=== PATIENT | female | born 1965 | race Caucasian/White ===

== ENCOUNTER → 2017-06-04 | Outpatient (CLI) | payer BC ==
--- NOTE | 2017-06-05 10:55 | MM ---
Reason for exam: screening (asymptomatic). Last mammogram was performed 1 year and 5 months ago. History: Family history of premenopausal breast cancer in paternal aunt at age 45. Physical Findings: A clinical breast exam by your physician is recommended on an annual basis and results should be correlated with mammographic findings. MG 3D Screening Mammo W/Cad Bilateral CC and MLO view(s) were taken. Prior study comparison: December 28, 2015, left breast MG work up mamm w CAD LT. December 18, 2015, bilateral MG screening mammo w CAD. The breast tissue is heterogeneously dense. This may lower the sensitivity of mammography. No significant changes when compared with prior studies. ASSESSMENT: Benign, BI-RAD 2 RECOMMENDATION: Routine screening mammogram of both breasts in 1 year.
== END | disposition home or self-care (01) ==
LOC: RADMAMWWP 15:16
PROVIDERS: ATTEND Family Medicine
DX: Z12.31 Encounter for screening mammogram for malignant neoplasm of breast (principal)
CPT/HCPCS: 77063; 77067

== ENCOUNTER 2017-06-11 07:44 | Day surgery (SDC) | payer BC ==
[2017-06-10 08:41] VITALS: BMI 25.8
[~2017-06-11 07:44] MED LIST: LACTATED RINGERS 1,000 ML IV SCH; LIDOCAINE 1% 20 ML VIAL (10MG/ML) FOR IV START INTRADERMA PRN
[2017-06-11 08:09] VITALS: TEMP 98.5
[2017-06-11] MEDS ORDERED: PROPOFOL 10 MG/ML 20 ML VIAL IV ONE (09:19)
[2017-06-11] MEDS ORDERED: LIDOCAINE 1% INJ 10MG/ML (20 ML MDV) ONE (09:19)
[2017-06-11 10:02] VITALS: BP 130/86; PULSE 78; RESP 18
--- NOTE | 2017-06-11 10:33 | P.PCN ---
Date of Procedure: 06/11/17 Procedure(s) Performed: Procedure: Colonoscopy and polypectomy. Preoperative diagnosis: Screening for neoplasia. Postoperative diagnosis: Rectal polyp snared and fulgurated with the snare but no large polyps or cancer. Preparation: HalfLytely prep. Sedation: Was provided by anesthesia. Brief clinical history: The patient is a 52-year-old female who is referred for this evaluation for screening for neoplasia age being her risk factor. There is no family history of colon cancer. The patient has no abdominal complaints, bleeding or anemia. This would be her first colonoscopy. Procedure: With the patient on her left lateral decubitus position and after informed consent and adequate sedation, the perianal area was inspected and it did not show any fissures or fistulas. There were no masses felt on digital rectal examination. The Olympus CFQ 160L video colonoscope was then inserted in the rectum in the usual fashion and advanced to the cecum. There was a flat polypoid area in the rectum within 1 cm from the anal canal measuring around 2 cm in greatest dimension which was snared and removed piecemeal. I then used the tip of the snare to fulgurate its borders with good hemostasis. There were no large polyps or cancer or any obvious diverticular disease or other pathology. I retroflexed the endoscope in the rectum before the endoscope was withdrawn. The patient tolerated the procedure well. Plan: The patient was reassured. Will await pathology results. I anticipate repeating this exam in around 3 years. She will follow-up with you as planned.
== END 2017-06-11 10:16 | disposition home or self-care (01) ==
LOC: ORWHC2ENDO 07:44
DX: Z12.11 Encounter for screening for malignant neoplasm of colon (principal); D12.8 Benign neoplasm of rectum; Z88.0 Allergy status to penicillin; K21.9 Gastro-esophageal reflux disease without esophagitis; Z79.899 Other long term (current) drug therapy
CPT/HCPCS: 81025; 88305; 45385; J2001; J2704

== ENCOUNTER → 2019-02-14 | Outpatient (CLI) | payer BC ==
--- NOTE | 2019-02-14 17:45 | BD ---
EXAMINATION TYPE: Axial Bone Density DATE OF EXAM: 02/14/2019 COMPARISON: NONE CLINICAL HISTORY: 53-year-old female postmenopausal screening Height: 65 inches Weight: 156 FRAX RISK QUESTIONS: Alcohol (3 or more units per day): no Family History (Parent hip fracture): no Glucocorticoids (More than 3mos): no (Ex: prednisone, prednisolone, methylprednisolone, dexamethasone, and hydrocortisone). History of Fracture in Adulthood: no Secondary Osteoporosis: 1. Type 1 Diabetes: no 2. Hyperthyroidism: no 3. Menopause before 45: no 4. Malnutrition: no 5. Chronic liver disease: no Rheumatoid Arthritis: no Current Tobacco Use: no RISK FACTORS HISTORY OF: Family History of Osteoporosis: no Active: yes Diet low in dairy products/other sources of calcium: no Postmenopausal woman: yes Take estrogen and/or progesterone medications: no Lost more than 2 inches in height since high school: no Frequent falls: no Poor Health: no Hyperparathyroidism: no Adrenal Insufficiency: no MEDICATIONS: Prednisone or other steroids: no Thyroid Medications:no Osteoporosis Medications: no Additional Medications: just started cholesterol med , Vitamin D, multi-Vitamin Additional History: EXAM MEASUREMENTS: Bone mineral densitometry was performed using the [employer] System. Bone mineral density as measured about the Lumbar spine is: ----- L1-L4(G/cm2): 1.254 T Score Values are as follows: ----- L2: -0.3 ----- L3: 1.3 ----- L4: 1.5 ----- L1-L4: 0.6 Bone mineral density BASELINE Bone mineral density about the R hip (g/cm2): 0.995 Bone mineral density about the L hip (g/cm2): 0.964 T Score values are as follows: -----R Neck: -0.3 -----L Neck: -0.5 -----R Total: 0.5 -----L Total: 0.4 Bone mineral density BASELINE IMPRESSION: Normal (Values between +1 and -1 indicate normal bone mass). Consider repeating this study in 5 year s or sooner if there is some new clinical indication. NOTE: T-SCORE=SD OF THE YOUNG ADULT MEAN.
== END | disposition home or self-care (01) ==
LOC: RADBDWWP 13:22
PROVIDERS: ATTEND Family Medicine
DX: M85.80 Other specified disorders of bone density and structure, unspecified site (principal)
CPT/HCPCS: 77080

== ENCOUNTER 2019-02-22 17:44 | Observation (INO) | payer BC ==
--- NOTE | 2019-02-22 17:54 | ED ---
Arrhythmia/Palpitations HPI - General Chief Complaint: Arrhythmia/Palpitations Stated Complaint: palpatations Time Seen by Provider: 02/22/19 17:53 Source: patient, RN notes reviewed, old records reviewed Mode of arrival: ambulatory Limitations: no limitations - History of Present Illness Initial Comments: This is a 53-year-old female the ER for evaluation shortness a for evaluation palpitations skipping heartbeats. Patient has had different episodes of palpitations recently. Symptoms 4-5 days. No chest pain. History of high cholesterol nonsmoker. No significant history of heart disease. No drugs or alcohol abuse. MD Complaint: palpitations -: days(s) (5) Context: occurred during rest, occurred during exertion Associated Symptoms: denies other symptoms - Related Data Home Medications Medication Instructions Recorded Confirmed Esomeprazole Magnesium [NexIUM] 20 mg PO DAILY 06/10/17 02/22/19 Multivitamin/Iron/Folic Acid 1 tab PO DAILY 06/10/17 02/22/19 [Centrum Adults Tablet] Atorvastatin [Lipitor] 20 mg PO HS 02/22/19 02/22/19 Cholecalciferol [Vitamin D3 (25 1,000 unit PO DAILY 02/22/19 02/22/19 Mcg = 1000 Iu)] Allergies Allergy/AdvReac Type Severity Reaction Status Date / Time Penicillins Allergy Unknown Verified 02/22/19 18:31 Childhood Review of Systems ROS Statement: Those systems with pertinent positive or pertinent negative responses have been documented in the HPI. ROS Other: All systems not noted in ROS Statement are negative. Past Medical History Past Medical History: Hyperlipidemia History of Any Multi-Drug Resistant Organisms: None Reported Additional Past Surgical History / Comment(s): finger sx, cyst removal Past Psychological History: No Psychological Hx Reported Smoking Status: Never smoker Past Alcohol Use History: Occasional Past Drug Use History: None Reported General Exam Limitations: no limitations General appearance: alert, in no apparent distress Head exam: Present: atraumatic, normocephalic, normal inspection Eye exam: Present: normal appearance, PERRL, EOMI. Absent: scleral icterus, conjunctival injection, periorbital swelling ENT exam: Present: normal exam, mucous membranes moist Neck exam: Present: normal inspection. Absent: tenderness, meningismus, lymphadenopathy Respiratory exam: Present: normal lung sounds bilaterally. Absent: respiratory distress, wheezes, rales, rhonchi, stridor Cardiovascular Exam: Present: regular rate, normal rhythm, normal heart sounds. Absent: systolic murmur, diastolic murmur, rubs, gallop, clicks GI/Abdominal exam: Present: soft, normal bowel sounds. Absent: distended, tenderness, guarding, rebound, rigid Extremities exam: Present: normal inspection, full ROM, normal capillary refill. Absent: tenderness, pedal edema, joint swelling, calf tenderness Back exam: Present: normal inspection Neurological exam: Present: alert, oriented X3, CN II-XII intact Psychiatric exam: Present: normal affect, normal mood Skin exam: Present: warm, dry, intact, normal color. Absent: rash Course Vital Signs 02/22/19 02/22/19 02/22/19 17:46 18:10 20:05 Temperature 97.6 F 97.6 F Pulse Rate 82 86 Pulse Rate [ 80 [employer] ] Respiratory 18 18 Rate Blood Pressure 140/80 115/69 O2 Sat by Pulse 99 99 Oximetry - Reevaluation(s) Reevaluation #1: 02/22/19 17:54 Medical records reviewed Reevaluation #2: 02/22/19 21:04 This patient at length regarding staying versus regarding patient seeing cardiology on outpatient basis. Patient states the pain and palpitations are bothering her about, she is unable to be discharged home - Consultations Consultation #1: Spoke with Dr. Ho is okay for admission EKG Findings - EKG Comments: EKG Findings:: EKG shows sinus rhythm rate of 75, AL 170, QRS 80, QTC 469 Medical Decision Making - Medical Decision Making 53 female the ER presenting with palpitations. Patient having active PVCs occurring about every other beat with occasional chest pain. Patient be admitted for cardiac observation and monitoring of PVCs and heart rhythm. Patient also is having episodic chest tightness we'll trend cardiac enzymes - Lab Data Result diagrams: 02/22/19 18:20 02/22/19 18:20 Lab Results 02/22/19 02/22/19 02/22/19 Range/Units 18:20 18:20 18:20 WBC 6.4 (3.8-10.6) k/uL RBC 4.11 (3.80-5.40) m/uL Hgb 12.9 (11.4-16.0) gm/dL Hct 36.4 (34.0-46.0) % MCV 88.5 (80.0-100.0) fL MCH 31.3 (25.0-35.0) pg MCHC 35.4 (31.0-37.0) g/dL RDW 12.8 (11.5-15.5) % Plt Count 197 (150-450) k/uL Neutrophils % 76 % Lymphocytes % 15 % Monocytes % 6 % Eosinophils % 1 % Basophils % 0 % Neutrophils # 4.8 (1.3-7.7) k/uL Lymphocytes # 1.0 (1.0-4.8) k/uL Monocytes # 0.4 (0-1.0) k/uL Eosinophils # 0.0 (0-0.7) k/uL Basophils # 0.0 (0-0.2) k/uL PT 10.1 (9.0-12.0) sec INR 0.9 (<1.2) APTT 24.2 (22.0-30.0) sec Sodium 137 (137-145) mmol/L Potassium 4.2 (3.5-5.1) mmol/L Chloride 100 (98-107) mmol/L Carbon Dioxide 28 (22-30) mmol/L Anion Gap 9 mmol/L BUN 18 H (7-17) mg/dL Creatinine 0.82 (0.52-1.04) mg/dL Est GFR (CKD-EPI)AfAm >90 (>60 ml/min/1.73 sqM) Est GFR (CKD-EPI)NonAf 82 (>60 ml/min/1.73 sqM) Glucose 93 (74-99) mg/dL Plasma Lactic Acid Fred (0.7-2.0) mmol/L Calcium 10.0 (8.4-10.2) mg/dL Phosphorus 4.3 (2.5-4.5) mg/dL Magnesium 1.9 (1.6-2.3) mg/dL Total Bilirubin 2.5 H (0.2-1.3) mg/dL AST 34 (14-36) U/L ALT 33 (9-52) U/L Alkaline Phosphatase 64 (38-126) U/L Creatine Kinase 46 (30-135) U/L Troponin I (0.000-0.034) ng/mL Total Protein 7.7 (6.3-8.2) g/dL Albumin 4.8 (3.5-5.0) g/dL TSH 1.500 (0.465-4.680) mIU/L Urine Color Urine Appearance (Clear) Urine pH (5.0-8.0) Ur Specific Ambrose (1.001-1.035) Urine Protein (Negative) Urine Glucose (UA) (Negative) Urine Ketones (Negative) Urine Blood (Negative) Urine Nitrite (Negative) Urine Bilirubin (Negative) Urine Urobilinogen (<2.0) mg/dL Ur Leukocyte Esterase (Negative) 02/22/19 02/22/19 02/22/19 Range/Units 18:20 18:20 19:21 WBC (3.8-10.6) k/uL RBC (3.80-5.40) m/uL Hgb (11.4-16.0) gm/dL Hct (34.0-46.0) % MCV (80.0-100.0) fL MCH (25.0-35.0) pg MCHC (31.0-37.0) g/dL RDW (11.5-15.5) % Plt Count (150-450) k/uL Neutrophils % % Lymphocytes % % Monocytes % % Eosinophils % % Basophils % % Neutrophils # (1.3-7.7) k/uL Lymphocytes # (1.0-4.8) k/uL Monocytes # (0-1.0) k/uL Eosinophils # (0-0.7) k/uL Basophils # (0-0.2) k/uL PT (9.0-12.0) sec INR (<1.2) APTT (22.0-30.0) sec Sodium (137-145) mmol/L Potassium (3.5-5.1) mmol/L Chloride (98-107) mmol/L Carbon Dioxide (22-30) mmol/L Anion Gap mmol/L BUN (7-17) mg/dL Creatinine (0.52-1.04) mg/dL Est GFR (CKD-EPI)AfAm (>60 ml/min/1.73 sqM) Est GFR (CKD-EPI)NonAf (>60 ml/min/1.73 sqM) Glucose (74-99) mg/dL Plasma Lactic Acid Fred 0.7 (0.7-2.0) mmol/L Calcium (8.4-10.2) mg/dL Phosphorus (2.5-4.5) mg/dL Magnesium (1.6-2.3) mg/dL Total Bilirubin (0.2-1.3) mg/dL AST (14-36) U/L ALT (9-52) U/L Alkaline Phosphatase (38-126) U/L Creatine Kinase (30-135) U/L Troponin I <0.012 (0.000-0.034) ng/mL Total Protein (6.3-8.2) g/dL Albumin (3.5-5.0) g/dL TSH (0.465-4.680) mIU/L Urine Color Light Yellow Urine Appearance Clear (Clear) Urine pH 6.0 (5.0-8.0) Ur Specific Ambrose 1.003 (1.001-1.035) Urine Protein Negative (Negative) Urine Glucose (UA) Negative (Negative) Urine Ketones Negative (Negative) Urine Blood Negative (Negative) Urine Nitrite Negative (Negative) Urine Bilirubin Negative (Negative) Urine Urobilinogen <2.0 (<2.0) mg/dL Ur Leukocyte Esterase Negative (Negative) - Radiology Data Radiology results: report reviewed (Chest x-rays negative for acute disease), image reviewed Disposition Clinical Impression: Palpitations, Premature ventricular contraction, Atypical chest pain Disposition: ADMITTED IP TO THIS HOSP Condition: Good Is patient prescribed a controlled substance at d/c from ED?: No Referrals: Canelo Donald DO [Primary Care Provider] - 1-2 days
[2019-02-22 19:13] LABS: Basophils % (A) 0 %; Eosinophils % (A) 1 %; HCT 36.4 % (34.0-46.0); HGB 12.9 gm/dL (11.4-16.0); Lymphocytes % (A) 15 %; MCH 31.3 pg (25.0-35.0); MCHC 35.4 g/dL (31.0-37.0); MCV 88.5 fL (80.0-100.0); Mean Platelet Volume 6.3; Monocytes # (A) 0.4 k/uL (0-1.0); Monocytes % (A) 6 %; Neutrophils # (A) 4.8 k/uL (1.3-7.7); Neutrophils % (A) 76 %; Platelet Count 197 k/uL (150-450); RBC 4.11 m/uL (3.80-5.40); RDW 12.8 % (11.5-15.5); WBC 6.4 k/uL (3.8-10.6)
[2019-02-22 19:14] LABS: Appearance,Urine Clear (Clear); Bilirubin,Urine Negative (Negative); Blood,Urine Negative (Negative); Color,Urine Light Yellow; Glucose,Urine (UA) Negative (Negative); Ketones,Urine Negative (Negative); Leukocyte Esterase,Urine Negative (Negative); Nitrite,Urine Negative (Negative); Protein,Urine Negative (Negative); Specific Gravity,Urine 1.003 (1.001-1.035); Urobilinogen,Urine <2.0 mg/dL (<2.0)
[2019-02-22 19:22] LABS: ALT 33 U/L (9-52); AST 34 U/L (14-36); African American GFR (CKD) >90 (>60 ml/min/1.73 sqM); Albumin 4.8 g/dL (3.5-5.0); Alkaline Phosphatase 64 U/L (38-126); Anion Gap 9 mmol/L; Blood Urea Nitrogen 18 mg/dL (7-17); Carbon Dioxide 28 mmol/L (22-30); Chloride 100 mmol/L (98-107); Creatine Kinase 46 U/L (30-135); Glucose 93 mg/dL (74-99); Magnesium 1.9 mg/dL (1.6-2.3); Non-African American GFR(CKD) 82 (>60 ml/min/1.73 sqM); Phosphorus 4.3 mg/dL (2.5-4.5); Potassium 4.2 mmol/L (3.5-5.1); Sodium 137 mmol/L (137-145); Total Bilirubin 2.5 mg/dL (0.2-1.3); Total Protein 7.7 g/dL (6.3-8.2)
[2019-02-22 19:43] LABS: INR 0.9 (<1.2); Partial Thromboplastin Time 24.2 sec (22.0-30.0); Prothrombin Time 10.1 sec (9.0-12.0)
--- NOTE | 2019-02-22 20:21 | XR ---
EXAMINATION: XR chest 2V DATE AND TIME: 02/22/2019 7:12 PM CLINICAL INDICATION: PHH; Weakness, palpitations, dyspnea TECHNIQUE: Departmental protocol COMPARISON: None FINDINGS: The lungs are clear. The pleural spaces are negative. The cardiac silhouette is not enlarged. The remainder of the mediastinal silhouette is unremarkable. The skeletal structures and soft tissues are negative for acute findings. IMPRESSION: NO ACUTE PROCESS.
[2019-02-22] MEDS ORDERED: ASPIRIN 81 MG PO STA (21:00)
[2019-02-22] MEDS ORDERED: NITROGLYCERIN SL TABS 0.4 MG TAB SUBLINGUAL PRN (21:00)
[2019-02-22] MEDS ORDERED: METOPROLOL TARTRATE 25 MG TAB PO SCH (21:00)
[2019-02-22] MEDS ORDERED: SODIUM CHLORIDE 0.9% 1,000 ML IV SCH (21:00)
[2019-02-23 07:59] LABS: Cholesterol 131 mg/dL (<200); HDL Cholesterol 49 mg/dL (40-60); LDL Cholesterol,Calculated 60 mg/dL (0-99); Triglycerides 110 mg/dL (<150)
[2019-02-23] MEDS ORDERED: ASPIRIN 81 MG PO SCH (09:00)
[2019-02-23] MEDS ORDERED: ASPIRIN 325 MG TAB PO SCH (09:00)
--- NOTE | 2019-02-23 09:56 | P.CRDCN ---
History of Present Illness History of present illness: This is a pleasant 53-year-old female past medical history significant for dyslipidemia. She denies prior history of coronary artery disease, hypertension or diabetes mellitus. She does not follow with a workers compensation coordinator for any reason. Dyslipidemia is a new diagnosis that was made earlier this month and she was initiated on atorvastatin 20 mg daily by her primary care physician. We have been asked to see her in consultation secondary to palpitations. She states she has been feeling palpitations off and on since Thursday. She saw her pcp Thursday and was referred to a workers compensation coordinator. However yesterday she had another episode of palpitations that was much more intense than before. She felt her heart beating fast and regular causing a tightness in the mid-sternal region and band like tightening around her upper abdomen. Associated with feeling light headed and short of breath. She has had no syncope or near syncope. In the past she can lay down and breath deep and the episode would pass. This episode lasted around 35 minute with no real relief prompting her to come in for further evaluation. Initial EKG on arrival revealed sinus mechanism with PVCs and PACs. She was started on Lopressor 25 mg and has had no further palpitations or PVCs noted on telemetry. She is seen and examined resting comfortably in bed in no acute distress. Chest x-ray is negative for an acute cardiopulmonary process. Laboratory data reviewed, CBC unremarkable, sodium 137, potassium 4.2, creatinine 0.82, total bilirubin 2.5, cardiac enzymes negative 3, LDL 60 and TSH 1.5. At the time of my exam: CONSTITUTIONAL: Denies fever. Denies chills. EYES: Denies blurred vision. Denies vision changes. Denies eye pain. EARS, NOSE, MOUTH & THROAT: Denies headache. Denies sore throat. Denies ear pain. CARDIOVASCULAR: Denies chest pain. Denies shortness of breath. Denies orthopnea. Denies PND. Denies palpitations. RESPIRATORY: Denies cough. GASTROINTESTINAL: Denies abdominal pain. Denies diarrhea. Denies constipation. Denies nausea. Denies vomiting. MUSCULOSKELETAL: Denies myalgias. INTEGUMENTARY: Denies pruitis. Denies rash. NEUROLOGIC: Denies numbness. Denies tingling. Denies weakness. PSYCHIATRIC: Denies anxiety. Denies depression. ENDOCRINE: Denies fatigue. Denies weight change. Denies polydipsia. Denies polyurina. GENITOURINARY: Denies burning, hematuria or urgency with micturation. HEMATOLOGIC: Denies history of anemia. Denies bleeding. Blood pressure 100/71 heart rate 57 afebrile maintaining oxygen saturation on room air GENERAL: This is a 53-year-old female in no apparent distress at the time of my examination. HEENT: Head is atraumatic, normocephalic. Pupils are equal, round. Sclerae anicteric. Conjunctivae are clear. Mucous membranes of the mouth are moist. Neck is supple. There is no jugular venous distention. No carotid bruit is heard. LUNGS: Clear to auscultation no wheezes, rales or rhonchi. No chest wall tenderness is noted on palpation or with deep breathing. HEART: Regular rate and rhythm without murmurs, rubs or gallops. S1 and S2 hear d. ABDOMEN: Soft, nontender. Bowel sounds are heard. No organomegaly noted. EXTREMITIES: No evidence of peripheral edema and no calf tenderness noted. VASCULAR: Radial and dorsalis pedis pulses palpated, no evidence of clubbing. NEUROLOGIC: Patient is awake, alert and oriented x3. ASSESSMENT Palpitations and chest discomfort with PVCs noted on EKG History of dyslipidemia recently started on Lipitor PLAN EKG reveals PVCs which are likely causing the patient's palpitations. Obtain 2-D echocardiogram and Doppler study to assess cardiac structure and function. Recommend proceeding with stress echocardiogram to assess for stress-induced ischemia as well as assess the prevalence of ectopy. Recommend outpatient event monitoring. This will be set up through the office. She will wear a 30 day event monitor in follow-up in the office with Dr. Cavanaugh in 4 weeks. No beta blockers at this time. This may her event monitoring will be accurate as to what is going on. Recommend taking Lipitor twice a week as her LDL cholesterol after 2 weeks is 60. Thank you kindly for this consultation. Nurse Practitioner note has been reviewed, I agree with a documented findings and plan of care. Patient was seen and examined. Past Medical History Past Medical History: Hyperlipidemia History of Any Multi-Drug Resistant Organisms: None Reported Additional Past Surgical History / Comment(s): finger sx, cyst removal Past Anesthesia/Blood Transfusion Reactions: No Reported Reaction Past Psychological History: No Psychological Hx Reported Smoking Status: Never smoker Past Alcohol Use History: Occasional Past Drug Use History: None Reported Medications and Allergies Home Medications Medication Instructions Recorded Confirmed Type Esomeprazole Magnesium [NexIUM] 20 mg PO DAILY 06/10/17 02/22/19 History Multivitamin/Iron/Folic Acid 1 tab PO DAILY 06/10/17 02/22/19 History [Centrum Adults Tablet] Atorvastatin [Lipitor] 20 mg PO HS 02/22/19 02/22/19 History Cholecalciferol [Vitamin D3 (25 1,000 unit PO DAILY 02/22/19 02/22/19 History Mcg = 1000 Iu)] Allergies Allergy/AdvReac Type Severity Reaction Status Date / Time Penicillins Allergy Unknown Verified 02/22/19 18:31 Childhood Physical Exam Vitals: Vital Signs Temp Pulse Pulse Pulse Resp BP BP 02/23/19 07:14 97.6 F 62 17 109/71 02/23/19 03:45 98.0 F 57 L 14 121/81 02/23/19 03:43 55 L 15 02/22/19 23:15 98.0 F 77 15 117/79 02/22/19 21:38 97.7 F 78 16 140/82 02/22/19 21:15 97.6 F 86 16 132/89 02/22/19 20:05 97.6 F 86 18 115/69 02/22/19 18:10 80 02/22/19 17:46 97.6 F 82 18 140/80 Pulse Ox 02/23/19 07:14 99 02/23/19 03:45 98 02/23/19 03:43 02/22/19 23:15 98 02/22/19 21:38 98 02/22/19 21:15 99 02/22/19 20:05 99 02/22/19 18:10 02/22/19 17:46 99 Intake and Output 02/22/19 02/23/19 02/23/19 22:59 06:59 14:59 Other: # Voids 1 1 Weight 72.575 kg Results 02/22/19 18:20 02/22/19 18:20 Cardiac Enzymes 02/22/19 02/22/19 02/22/19 Range/Units 18:20 18:20 23:42 AST 34 (14-36) U/L Troponin I <0.012 <0.012 (0.000-0.034) ng/mL Coagulation 02/22/19 Range/Units 18:20 PT 10.1 (9.0-12.0) sec APTT 24.2 (22.0-30.0) sec Lipids 02/23/19 Range/Units 07:03 Triglycerides 110 (<150) mg/dL Cholesterol 131 (<200) mg/dL HDL Cholesterol 49 (40-60) mg/dL CBC 02/22/19 Range/Units 18:20 WBC 6.4 (3.8-10.6) k/uL RBC 4.11 (3.80-5.40) m/uL Hgb 12.9 (11.4-16.0) gm/dL Hct 36.4 (34.0-46.0) % Plt Count 197 (150-450) k/uL Comprehensive Metabolic Panel 02/22/19 Range/Units 18:20 Sodium 137 (137-145) mmol/L Potassium 4.2 (3.5-5.1) mmol/L Chloride 100 (98-107) mmol/L Carbon Dioxide 28 (22-30) mmol/L BUN 18 H (7-17) mg/dL Creatinine 0.82 (0.52-1.04) mg/dL Glucose 93 (74-99) mg/dL Calcium 10.0 (8.4-10.2) mg/dL AST 34 (14-36) U/L ALT 33 (9-52) U/L Alkaline Phosphatase 64 (38-126) U/L Total Protein 7.7 (6.3-8.2) g/dL Albumin 4.8 (3.5-5.0) g/dL Current Medications Generic Name Dose Route Start Last Admin Trade Name Freq PRN Reason Stop Dose Admin Aspirin 325 mg 02/23/19 09:00 Aspirin PO DAILY JULISSA Sodium Chloride 1,000 mls @ 100 mls/hr 02/22/19 21:00 02/22/19 21:13 Saline 0.9% IV 100 mls/hr .Q10H JULISSA Administration Metoprolol Tartrate 25 mg 02/22/19 21:00 02/22/19 21:45 Lopressor PO 25 mg BID JULISSA Administration Nitroglycerin 0.4 mg 02/22/19 21:00 Nitrostat SUBLINGUAL Q5M PRN Chest Pain Intake and Output 02/22/19 02/23/19 02/23/19 22:59 06:59 14:59 Other: # Voids 1 1 Weight 72.575 kg 02/22/19 18:20 02/22/19 18:20
[2019-02-23 11:39] VITALS: BP 116/67; PULSE 87; RESP 16; TEMP 97.7
[2019-02-23] MEDS ORDERED: METOPROLOL TARTRATE 25 MG TAB PO SCH (12:00)
--- NOTE | 2019-02-23 12:01 | ECHOF ---
Referral Reason:cp MEASUREMENTS -------- HEIGHT: 165.1 cm WEIGHT: 72.6 kg BP: RVIDd: 2.7 cm (< 3.3) IVSd: 1.1 cm (0.6 - 1.1) LVIDd: 3.8 cm (3.9 - 5.3) LVPWd: 1.0 cm (0.6 - 1.1) IVSs: 1.1 cm LVIDs: 3.1 cm LVPWs: 1.3 cm LA Diam: 2.9 cm (2.7 - 3.8) LAESV Index (A-L): 19.16 ml/m Ao Diam: 2.9 cm (2.0 - 3.7) AV Cusp: 1.6 cm (1.5 - 2.6) LA Diam: 3.0 cm (2.7 - 3.8) MV EXCURSION: 21.800 mm (> 18.000) MV EF SLOPE: 110 mm/s (70 - 150) EPSS: 0.6 cm MV E Jevon: 0.64 m/s MV DecT: 194 ms MV A Jevon: 0.61 m/s MV E/A Ratio: 1.04 RAP: 5.00 mmHg RVSP: 17.14 mmHg FINDINGS -------- Sinus rhythm. This was a technically good study. LV size, wall thickness and systolic function are normal, with an EF greater than 55%. The left waylon tricular size is normal. The right ventricle is normal in size. The left atrial size is normal. The right atrial size is normal. The aortic valve is trileaflet, and appears structurally normal. No aortic stenosis or regurgitation. Mild mitral regurgitation is present. Mild tricuspid regurgitation present. Right ventricular systolic pressure is normal at < 35 mmHg. There is no evidence of pulmonary hypertension. There is no pulmonic regurgitation present. The aortic root size is normal. There is no pericardial effusion. CONCLUSIONS -------- 1. Sinus rhythm. 2. This was a technically good study. 3. LV size, wall thickness and systolic function are normal, with an EF greater than 55%. 4. The left ventricular size is normal. 5. The right ventricle is normal in size. 6. The left atrial size is normal. 7. The right atrial size is normal. 8. The aortic valve is trileaflet, and appears structurally normal. No aortic stenosis or regurgitati on. 9. Mild mitral regurgitation is present. 10. Mild tricuspid regurgitation present. 11. Right ventricular systolic pressure is normal at < 35 mmHg. 12. There is no evidence of pulmonary hypertension. 13. There is no pulmonic regurgitation present. 14. The aortic root size is normal. 15. There is no pericardial effusion. WINDOWS SOFTWARE DEVELOPER: Amarilis Becerra RDCS
--- NOTE | 2019-02-23 13:57 | P.HPIM ---
History of Present Illness 53-year-old presents female came in with compensative palpation denied any chest pain although she has mild discomfort. Telemetry did not show any significant abnormality patient underwent stress test and the stress test patient had multiple PVCs which may be contributing to her palpitations patient denied any fever chills patient and dysuria patient denied diarrhea patient is not dehydrated doesn't have any signs or symptoms of sepsis. Cardiology valid to the patient they cleared her for discharge stress test was negative for any inducible ischemia and they're recommending Holter monitor as well as beta nadia. Patient will be discharged today. TSH is 1.5 Review of Systems REVIEW OF SYSTEMS: CONSTITUTIONAL: No fever, no malaise, no fatigue. HEENT: No recent visual problems or hearing problems. Denied any sore throat. CARDIOVASCULAR: No chest pain, orthopnea, PND, no syncope. PULMONARY: No shortness of breath, no cough, no hemoptysis. GASTROINTESTINAL: No diarrhea, no nausea, no vomiting, no abdominal pain. NEUROLOGICAL: No headaches, no weakness, no numbness. HEMATOLOGICAL: Denies any bleeding or petechiae. GENITOURINARY: Denies any burning micturition, frequency, or urgency. MUSCULOSKELETAL/RHEUMATOLOGICAL: Denies any joint pain, swelling, or any muscle pain. ENDOCRINE: Denies any polyuria or polydipsia. The rest of the 14-point review of systems is negative. Past Medical History Past Medical History: Hyperlipidemia History of Any Multi-Drug Resistant Organisms: None Reported Additional Past Surgical History / Comment(s): finger sx, cyst removal Past Anesthesia/Blood Transfusion Reactions: No Reported Reaction Past Psychological History: No Psychological Hx Reported Smoking Status: Never smoker Past Alcohol Use History: Occasional Past Drug Use History: None Reported Medications and Allergies Home Medications Medication Instructions Recorded Confirmed Type Esomeprazole Magnesium [NexIUM] 20 mg PO DAILY 06/10/17 02/22/19 History Multivitamin/Iron/Folic Acid 1 tab PO DAILY 06/10/17 02/22/19 History [Centrum Adults Tablet] Atorvastatin [Lipitor] 20 mg PO HS 02/22/19 02/22/19 History Cholecalciferol [Vitamin D3 (25 1,000 unit PO DAILY 02/22/19 02/22/19 History Mcg = 1000 Iu)] Metoprolol Tartrate [Lopressor] 25 mg PO DAILY #90 tab 02/23/19 Rx Allergies Allergy/AdvReac Type Severity Reaction Status Date / Time Penicillins Allergy Unknown Verified 02/22/19 18:31 Childhood Physical Exam Vitals: Vital Signs Temp Pulse Pulse Pulse Resp BP BP 02/23/19 11:49 87 16 02/23/19 11:38 97.7 F 87 16 116/67 02/23/19 08:00 57 L 62 17 02/23/19 07:14 97.6 F 62 17 109/71 02/23/19 03:45 98.0 F 57 L 14 121/81 02/23/19 03:43 55 L 15 02/22/19 23:15 98.0 F 77 15 117/79 02/22/19 21:38 97.7 F 78 16 140/82 02/22/19 21:15 97.6 F 86 16 132/89 02/22/19 20:05 97.6 F 86 18 115/69 02/22/19 18:10 80 02/22/19 17:46 97.6 F 82 18 140/80 Pulse Ox 02/23/19 11:49 02/23/19 11:38 99 02/23/19 08:00 02/23/19 07:14 99 02/23/19 03:45 98 02/23/19 03:43 02/22/19 23:15 98 02/22/19 21:38 98 02/22/19 21:15 99 02/22/19 20:05 99 02/22/19 18:10 02/22/19 17:46 99 Intake and Output 02/22/19 02/23/19 02/23/19 22:59 06:59 14:59 Other: Voiding Method Toilet # Voids 1 1 Weight 72.575 kg 72.575 kg PHYSICAL EXAMINATION: GENERAL: The patient is alert and oriented x3, not in any acute distress. Well developed, well nourished. HEENT: Pupils are round and equally reacting to light. EOMI. No scleral icterus. No conjunctival pallor. Normocephalic, atraumatic. No pharyngeal erythema. No thyromegaly. CARDIOVASCULAR: S1 and S2 present. No murmurs, rubs, or gallops. PULMONARY: Chest is clear to auscultation, no wheezing or crackles. ABDOMEN: Soft, nontender, nondistended, normoactive bowel sounds. No palpable organomegaly. MUSCULOSKELETAL: No joint swelling or deformity. EXTREMITIES: No cyanosis, clubbing, or pedal edema. NEUROLOGICAL: Gross neurological examination did not reveal any focal deficits. SKIN: No rashes. Results CBC & Chem 7: 02/22/19 18:20 02/22/19 18:20 Labs: Abnormal Lab Results - Last 24 Hours (Table) 02/22/19 Range/Units 18:20 BUN 18 H (7-17) mg/dL Total Bilirubin 2.5 H (0.2-1.3) mg/dL Thrombosis Risk Factor Assmnt - Choose All That Apply Each Factor Represents 1 point: Age 41-60 years Other Risk Factors: No Thrombosis Risk Factor Assessment Total Risk Factor Score: 1 Thrombosis Risk Factor Assessment Level: Low Risk Assessment and Plan Plan: Mild chest discomfort: Rule out acute chronic syndromes, stresses is negative patient is being discharged today -palpitations believed to be secondary to multiple PVCs and frequent PVCs patient is being discharged on beta nadia echocardiogram showed normal ejection fraction was also significant abnormality -Dyslipidemia: On Lipitor which will be continued
--- NOTE | 2019-02-23 13:57 | P.DS ---
Providers Date of admission: 02/22/19 21:02 Attending physician: Harinder Ho Consults: 02/22/19 21:00 Consult Physician Urgent Consulting Provider: Erik Partida Consult Reason/Comments: PVCs Do you want consulting provider notified?: Yes Primary care physician: Canelo Donald [facility] Course: Please refer to my HPI for further details Patient Condition at Discharge: Good Plan - Discharge Summary Discharge Rx Participant: No New Discharge Prescriptions: New Metoprolol Tartrate [Lopressor] 25 mg PO DAILY #90 tab Continue Esomeprazole Magnesium [NexIUM] 20 mg PO DAILY Multivitamin/Iron/Folic Acid [Centrum Adults Tablet] 1 tab PO DAILY Cholecalciferol [Vitamin D3 (25 Mcg = 1000 Iu)] 1,000 unit PO DAILY Atorvastatin [Lipitor] 20 mg PO HS Discharge Medication List Esomeprazole Magnesium [NexIUM] 20 mg PO DAILY 06/10/17 [History] Multivitamin/Iron/Folic Acid [Centrum Adults Tablet] 1 tab PO DAILY 06/10/17 [History] Atorvastatin [Lipitor] 20 mg PO HS 02/22/19 [History] Cholecalciferol [Vitamin D3 (25 Mcg = 1000 Iu)] 1,000 unit PO DAILY 02/22/19 [History] Metoprolol Tartrate [Lopressor] 25 mg PO DAILY #90 tab 02/23/19 [Rx] Follow up Appointment(s)/Referral(s): Lm Cavanaugh MD [STAFF PHYSICIAN] - 03/21/19 1:15 pm Canelo Donald DO [Primary Care Provider] - 3 Days Discharge Disposition: HOME SELF-CARE
--- NOTE | 2019-02-23 14:09 | ECHOS ---
STRESS ECHOCARDIOGRAM INDICATIONS: Palpitations. MEDICATIONS: Atorvastatin. BASELINE HEART RATE: 68 BASELINE BLOOD PRESSURE: 104/60 MAXIMUM HEART RATE: 151 MAXIMUM BLOOD PRESSURE: 158/70 85% MPHR: 142 100% MPHR: 167 METS: 10.3 MAXIMUM STAGE REACHED: 3 TOTAL EXERCISE TIME: 9:00 CLINICAL INFORMATION: Baseline EKG revealed a sinus mechanism with isolated PVCs, no acute changes. Patient walked on standard Stan protocol for 9 minutes, achieved a maximal heart rate of 151 beats per minute, developed fatigue and shortness of breath. Isolated PVCs persisted with exercise. At peak exercise, PVCs were less compared to at the beginning and again in the recovery, rare PVCs were noted. By EKG criteria, this is a negative stress test with asymptomatic isolated PVCs and fair exercise capacity. Baseline echo images revealed normal wall motion and wall thickening of all segments. At peak exercise, there was good augmentation of left ventricular wall motion and wall thickening of all segments suggesting that there is no evidence of stress-induced ischemia on this study. FINAL IMPRESSION: 1. Good exercise capacity with a negative stress test by EKG criteria. Asymptomatic isolated premature ventricular contractions were noted that seem to improve as exercise progressed and again came back in recovery. 2. Normal stress echocardiogram with good myocardial contractility and no evidence of stress-induced ischemia. MMODL / IJN: [id number] /
== END 2019-02-23 13:53 | disposition home or self-care (01) ==
LOC: EC 17:44 → 1SOBS 21:02
PROVIDERS: ADMIT Hospitalist; ATTEND Hospitalist
DX: R00.2 Palpitations (principal); R07.89 Other chest pain; I49.3 Ventricular premature depolarization; E78.5 Hyperlipidemia, unspecified; E78.00 Pure hypercholesterolemia, unspecified; R42 Dizziness and giddiness; R06.02 Shortness of breath; Z79.899 Other long term (current) drug therapy; Z88.0 Allergy status to penicillin
CPT/HCPCS: 93005 ×2; 99285; 36415; 93306; 93351; 80061; 80053; 82550; 83605; 83735; 84100; 84443; 84484 ×2; 85025; 85610; 85730; 81003; 71046; G0378 ×2

== ENCOUNTER → 2019-04-13 | Outpatient (CLI) | payer BC ==
--- NOTE | 2019-04-14 11:48 | MM ---
Reason for exam: screening (asymptomatic). Last mammogram was performed 1 year and 10 months ago. History: Patient is postmenopausal. Family history of premenopausal breast cancer in paternal aunt at age 45. Physical Findings: A clinical breast exam by your physician is recommended on an annual basis and results should be correlated with mammographic findings. MG Screening Mammo w CAD Bilateral CC and MLO view(s) were taken. Prior study comparison: June 04, 2017, bilateral MG 3d screening mammo w/cad. December 28, 2015, left breast MG work up mamm w CAD LT. The breast tissue is heterogeneously dense. This may lower the sensitivity of mammography. There is no discrete abnormality. ASSESSMENT: Negative, BI-RAD 1 RECOMMENDATION: Routine screening mammogram of both breasts in 1 year.
== END | disposition home or self-care (01) ==
LOC: RADMAMWWP 10:09
PROVIDERS: ATTEND Family Medicine
DX: Z12.31 Encounter for screening mammogram for malignant neoplasm of breast (principal)
CPT/HCPCS: 77067

== ENCOUNTER → 2020-06-21 | Outpatient (CLI) | payer BC ==
--- NOTE | 2020-06-22 13:43 | MM ---
Reason for exam: screening (asymptomatic). Last mammogram was performed 1 year and 2 months ago. History: Patient is postmenopausal. Family history of premenopausal breast cancer in paternal aunt at age 45. Physical Findings: A clinical breast exam by your physician is recommended on an annual basis and results should be correlated with mammographic findings. MG 3D Screening Mammo W/Cad Bilateral CC and MLO view(s) were taken. Prior study comparison: April 13, 2019, bilateral MG screening mammo w CAD. June 04, 2017, bilateral MG 3d screening mammo w/cad. The breast tissue is heterogeneously dense. This may lower the sensitivity of mammography. There is no discrete abnormality. No significant changes when compared with prior studies. ASSESSMENT: Benign, BI-RAD 2 RECOMMENDATION: Routine screening mammogram of both breasts in 1 year.
== END ==
LOC: RADMAMWWP 10:04
PROVIDERS: ATTEND Family Medicine
DX: Z12.31 Encounter for screening mammogram for malignant neoplasm of breast (principal)
CPT/HCPCS: 77063; 77067

== ENCOUNTER 2021-02-08 09:29 | Day surgery (SDC) | payer BC ==
[2021-02-06 13:23] VITALS: BMI 25.2
[~2021-02-08 09:29] MED LIST changes: -LIDOCAINE 1% 20 ML VIAL (10MG/ML) FOR IV START INTRADERMA PRN
[2021-02-08 09:48] VITALS: TEMP 97.8
[2021-02-08] MEDS ORDERED: LACTATED RINGERS 1,000 ML IV ONE (09:48)
[2021-02-08] MEDS ORDERED: LIDOCAINE 1% INJ 10MG/ML (20 ML MDV) ONE (10:46)
[2021-02-08] MEDS ORDERED: PROPOFOL 10 MG/ML 20 ML VIAL IV ONE (10:46)
--- NOTE | 2021-02-08 11:06 | P.PCN ---
Date of Procedure: 02/08/21 Procedure(s) Performed: BRIEF HISTORY: Patient is a 55-year-old pleasant white female scheduled for an elective colonoscopy as a part of the lesion of prior history of colon polyps. Last coloscopy was 3 years ago. PROCEDURE PERFORMED: Colonoscopy. PREOPERATIVE DIAGNOSIS: History of colon polyps. IV sedation per Anesthesia. PROCEDURE: After informed consent was obtained, the patient, was brought into the endoscopy unit. IV sedation was administered by Anesthesia under continuous monitoring. Digital rectal examination was normal. Initially the Olympus CF-160 flexible video colonoscope was then inserted in the rectum, gradually advanced into the cecum without any difficulty. Careful examination was performed as the scope was gradually being withdrawn. Ileocecal valve and the appendiceal orifice were visualized and appeared normal. Prep was excellent. Mucosa of the cecum, ascending colon, transverse colon, descending colon, sigmoid colon, and rectum appeared normal. Retroflexion was performed in the rectum and no lesions were seen. The patient tolerated the procedure well. IMPRESSION: Normal-appearing colon from rectum to cecum with no evidence of colorectal neoplasia . RECOMMENDATIONS: Findings of this examination were discussed with the patient as well as a family. She was advised to have a repeat surveillance colonoscopy in 5 years now because of the prior history of colon polyps.
[2021-02-08 11:09] VITALS: RESP 16
[2021-02-08 11:34] VITALS: BP 122/77; PULSE 66
== END 2021-02-08 11:55 | disposition home or self-care (01) ==
LOC: ORWHC2ENDO 09:29
PROVIDERS: ATTEND Internal Medicine Gastroenterology
DX: Z86.010 Personal history of colon polyps (principal)
CPT/HCPCS: 45378; J2001; J2704

== ENCOUNTER → 2021-04-02 | Outpatient (CLI) | payer BC ==
[2021-04-02 13:26] LABS: Basophils % (A) 1 %; Eosinophils # (A) 0.1 k/uL (0-0.7); Eosinophils % (A) 1 %; HCT 37.5 % (34.0-46.0); HGB 12.7 gm/dL (11.4-16.0); Lymphocytes # (A) 0.9 k/uL (1.0-4.8); Lymphocytes % (A) 15 %; MCH 30.9 pg (25.0-35.0); MCHC 33.9 g/dL (31.0-37.0); MCV 91.2 fL (80.0-100.0); Mean Platelet Volume 7.6; Monocytes # (A) 0.5 k/uL (0-1.0); Monocytes % (A) 8 %; Neutrophils # (A) 4.4 k/uL (1.3-7.7); Neutrophils % (A) 74 %; Platelet Count 186 k/uL (150-450); RBC 4.11 m/uL (3.80-5.40); WBC 5.9 k/uL (3.8-10.6)
== END | disposition home or self-care (01) ==
LOC: LABPAT 11:20
PROVIDERS: ATTEND Obstetrics & Gynecology
DX: Z01.818 Encounter for other preprocedural examination (principal); R00.1 Bradycardia, unspecified
CPT/HCPCS: 36415; 85025; 93005

== ENCOUNTER 2021-04-05 11:10 | Day surgery (SDC) | payer BC ==
[2021-04-03 10:50] VITALS: BMI 25.4
--- NOTE | 2021-04-05 09:08 | P.HPOB ---
History of Present Illness H&P Date: 04/05/21 Chief Complaint: DUB 55 year old presents with prolonged DUB. We have done endometrial biopsies which showed atrophic endometrium and cervical polyp. I have treated her for BV and yeast as well as cryotherapy of cervix. She continues to have a bloody vaginal discharge. Review of Systems All systems: negative Constitutional: Denies chills, Denies fever Eyes: denies blurred vision, denies pain Ears, nose, mouth and throat: Denies headache, Denies sore throat Cardiovascular: Denies chest pain, Denies shortness of breath Respiratory: Denies cough Gastrointestinal: Denies abdominal pain, Denies diarrhea, Denies nausea, Denies vomiting Genitourinary: Denies dysuria, Denies hematuria Musculoskeletal: Denies myalgias Integumentary: Denies pruritus, Denies rash Neurological: Denies numbness, Denies weakness Psychiatric: Denies anxiety, Denies depression Endocrine: Denies fatigue, Denies weight change Past Medical History Past Medical History: GERD/Reflux, Hyperlipidemia Additional Past Medical History / Comment(s): hx migraines, palpitations, abnormal post menopauseal vaginal bleeding History of Any Multi-Drug Resistant Organisms: None Reported Past Surgical History: Orthopedic Surgery Additional Past Surgical History / Comment(s): finger sx, cyst removal from ovary Past Anesthesia/Blood Transfusion Reactions: No Reported Reaction, Motion Sickness Smoking Status: Never smoker - Past Family History Mother Family Medical History: Cancer Medications and Allergies Home Medications Medication Instructions Recorded Confirmed Type Multivitamin/Iron/Folic Acid 1 tab PO DAILY 06/10/17 04/03/21 History [Centrum Adults Tablet] Atorvastatin [Lipitor] 20 mg PO MOTH 02/22/19 04/03/21 History Cholecalciferol [Vitamin D3 (25 1,000 unit PO DAILY 02/22/19 04/03/21 History Mcg = 1000 Iu)] Metoprolol Tartrate [Lopressor] 12.5 mg PO BID 02/06/21 04/03/21 History Magnesium Tab 110 mg PO DAILY 04/03/21 04/03/21 History Allergies Allergy/AdvReac Type Severity Reaction Status Date / Time Penicillins Allergy Unknown Verified 04/03/21 10:41 Childhood Exam Osteopathic Statement: *. No significant issues noted on an osteopathic struc tural exam other than those noted in the History and Physical/Consult. Heart: Regular rate and rhythm Lungs: Clear to auscultation bilaterally Abdomen: Soft, nontender Extremities: Negative Homans sign Assessment and Plan (1) DUB (dysfunctional uterine bleeding) Status: Acute Code(s): N93.8 - OTHER SPECIFIED ABNORMAL UTERINE AND VAGINAL BLEEDING SNOMED Code(s): 82606118013537 Plan: 1. D&C hysteroscopy and endometrial ablation with Flavia
[~2021-04-05 11:10] MED LIST changes: +DEXAMETHASONE SOD PHOSPHATE 4 MG/ML 1 ML VIAL IV ONE; +HYDROmorphone 0.5 MG/0.5 ML SYRINGE IVP PRN; +MIDAZOLAM 2 MG/2 ML VIAL IV PRN; +ONDANSETRON 4 MG/2 ML VIAL IVP ONE; +Pre Op ABX Message 1 EACH MISC MISCELLANE ONE; +SCOPOLAMINE 1.5MG/72HR PATCH TRANSDERM ONE
[2021-04-05] MEDS ORDERED: LIDOCAINE 1% (10MG/ML) FOR IV START INTRADERMA ONE (11:45)
[2021-04-05] MEDS ORDERED: .fentaNYL (PF) 50 MCG/ML 2 ML AMP ONE (12:20)
[2021-04-05] MEDS ORDERED: MIDAZOLAM 2 MG/2 ML VIAL ONE (12:20)
[2021-04-05] MEDS ORDERED: KETOROLAC 15 MG/ML 1 ML VIAL ONE (12:20)
[2021-04-05] MEDS ORDERED: PROPOFOL 10 MG/ML 20 ML VIAL IV ONE (12:20)
[2021-04-05] MEDS ORDERED: SUCCINYLCHOLINE CHLORIDE 100 MG/5 ML SYR IV ONE (12:20)
[2021-04-05] MEDS ORDERED: LIDOCAINE 1% INJ 10MG/ML (20 ML MDV) ONE (12:20)
--- NOTE | 2021-04-05 12:57 | P.OP ---
Date of Procedure: 04/05/21 Preoperative Diagnosis: 1. DUB Postoperative Diagnosis: 1. DUB Procedure(s) Performed: D&C hysteroscopy and endometrial ablation with Flavia Anesthesia: SUDHIR Surgeon: Ashleigh Stokes Estimated Blood Loss (ml): 50 IV fluids (ml): 200 Urine output (ml): 35 Pathology: other (endometrial currettings) Condition: stable Disposition: PACU Operative Findings: Uterus sounded to 6 cm and cervix sounded to 2 cm making the cavity length 4 cm. adequate ablation after the Flavia Description of Procedure: Patient is taken the operating room where general anesthesia was obtained without difficulty. She was prepped and draped in normal sterile fashion dorsal lithotomy position, legs placed in the TUTORizey cane stirrups. Bladder was drained of all urine. Weighted speculum placed in the vagina and the anterior lip the cervix was grasped with serial tooth tenaculum. The uterus sounded to 6 cm and the cervix under 2 cm making the cavity length 4 cm. The cervix was dilated to #8 Hegar dilator. Hysteroscopy was then performed. Both ostia were visualized and there was a smooth contour of the uterus appearing atrophic. There was one area on the posterior wall that looked like it had some proliferative tissue. Sharp curet was then gently used to obtain endometrial curettings. The Flavia was introduced into the uterus with a cavity length of 4 cm. After cavity assessment was passed, the time of ablation was 120 seconds. Hysteroscopy was again performed and adequate ablation was noted. All instruments removed from the vagina. Patient tolerated the procedure well, sponge and instrument counts were correct 2 and she was taken to recovery in stable condition.
[2021-04-05 13:00] VITALS: TEMP 97
[2021-04-05 14:12] VITALS: RESP 15
[2021-04-05 14:27] VITALS: BP 126/78; PULSE 84
== END 2021-04-05 14:56 | disposition home or self-care (01) ==
LOC: OR 11:10
PROVIDERS: ATTEND Obstetrics & Gynecology
DX: N85.8 Other specified noninflammatory disorders of uterus (principal); N84.1 Polyp of cervix uteri; I10 Essential (primary) hypertension; K21.9 Gastro-esophageal reflux disease without esophagitis; E78.5 Hyperlipidemia, unspecified; R00.2 Palpitations; G43.909 Migraine, unspecified, not intractable, without status migrainosus; Z98.890 Other specified postprocedural states; Z79.899 Other long term (current) drug therapy; Z88.0 Allergy status to penicillin
CPT/HCPCS: 88305; 58563; J2250; J1100; J2405; J2001; J3010; J1885; J0330; J2704

== ENCOUNTER → 2021-07-03 | Outpatient (CLI) | payer BC ==
--- NOTE | 2021-07-03 10:33 | US ---
EXAMINATION TYPE: US abdomen complete DATE OF EXAM: 07/03/2021 COMPARISON: NONE CLINICAL HISTORY: RUQ Abd tenderness R10.811 Epigastric pain R10.13. RUQ pain for the past 6 months. EXAM MEASUREMENTS: Liver Length: 14.5 cm Gallbladder Wall: Not clearly seen cm CBD: 0.6 cm Spleen: 9.9 x 4.7 cm Right Kidney: 9.7 x 4.8 x 4.4 cm Left Kidney: 10.0 x 4.6 x 3.7 cm Pancreas: wnl Liver: wnl Gallbladder: Shadowing gallbladder. Evidence for sonographic Gaines's sign: No CBD: wnl Spleen: wnl Right Kidney: No hydronephrosis or masses seen Left Kidney: No hydronephrosis or masses seen Upper IVC: wnl Abd Aorta: wnl Shadowing gallbladder. The liver is homogenous. The intrahepatic portion of the IVC and proximal abdominal aorta are within normal limits. Common bile duct is unremarkable. The visualized portions of the pancreas are homog enous. The spleen is unremarkable. Kidneys are symmetric and free of hydronephrosis. No renal lesi ons are seen. IMPRESSION: There is evidence of cholelithiasis.
== END | disposition home or self-care (01) ==
LOC: RADUSWWP 08:08
PROVIDERS: ATTEND Family Medicine
DX: K80.20 Calculus of gallbladder without cholecystitis without obstruction (principal)
CPT/HCPCS: 76700

== ENCOUNTER 2021-07-12 08:58 | Day surgery (SDC) | payer BC ==
[2021-07-10 13:13] VITALS: BMI 25.0
[~2021-07-12 08:58] MED LIST changes: -DEXAMETHASONE SOD PHOSPHATE 4 MG/ML 1 ML VIAL IV ONE; -HYDROmorphone 0.5 MG/0.5 ML SYRINGE IVP PRN; -MIDAZOLAM 2 MG/2 ML VIAL IV PRN; -ONDANSETRON 4 MG/2 ML VIAL IVP ONE; -Pre Op ABX Message 1 EACH MISC MISCELLANE ONE; -SCOPOLAMINE 1.5MG/72HR PATCH TRANSDERM ONE
[2021-07-12 09:28] VITALS: RESP 16; TEMP 97.3
[2021-07-12] MEDS ORDERED: LIDOCAINE 1% INJ 10MG/ML (20 ML MDV) ONE (10:20)
[2021-07-12] MEDS ORDERED: PROPOFOL 10 MG/ML 20 ML VIAL IV ONE (10:20)
--- NOTE | 2021-07-12 10:27 | P.PCN ---
Date of Procedure: 07/12/21 Procedure(s) Performed: BRIEF HISTORY: Patient is a 56-year-old, pleasant, white female scheduled for an upper endoscopy as a part of evaluation of gastroesophageal reflux symptoms for the last several months duration.. PROCEDURE PERFORMED: Esophagogastroduodenoscopy with biopsy. PREOPERATIVE DIAGNOSIS: Long-standing History of GERD. IV sedation per anesthesia. PROCEDURE: After informed consent was obtained, the patient was brought into the endoscopy unit. IV sedation was administered by Anesthesia under continuous monitoring. Initially the Olympus GIF-140 video endoscope was inserted into the mouth. Esophagus intubated without any difficulty. It was gradually advanced into the stomach and duodenum and carefully examined. The bulb and the second part of the duodenum appeared normal. The scope at this time was withdrawn to the stomach, adequately insufflated with air, and upon careful examination, mucosa of the antrum, minimal gastritis and biopsies were done from this area. The body, cardia and the fundus appeared normal. Small gastric polyps noted in the body and fundus of the stomach which were biopsied. The scope was then withdrawn into the esophagus. The GE junction was located at 39 cm from the incisors. The esophagus appeared normal. There were no erosions or ulcerations seen and the patient tolerated the procedure well. IMPRESSION: 1. Minimal antral gastritis. 2. Multiple small gastric polyps. RECOMMENDATIONS: The findings of this examination were discussed with the patient as a family. She was advised to follow with the biopsy results. Continue with Pepcid 20 mg daily and follow antireflux measures.
[2021-07-12 10:48] VITALS: BP 111/75; PULSE 64
== END 2021-07-12 11:00 | disposition home or self-care (01) ==
LOC: ORWHC2ENDO 08:58
PROVIDERS: ATTEND Internal Medicine Gastroenterology
DX: K29.70 Gastritis, unspecified, without bleeding (principal); K31.7 Polyp of stomach and duodenum; K21.9 Gastro-esophageal reflux disease without esophagitis; I10 Essential (primary) hypertension; E78.5 Hyperlipidemia, unspecified
CPT/HCPCS: 43239; 88305; J2001; J2704

== ENCOUNTER → 2021-07-29 | Outpatient (CLI) | payer BC ==
--- NOTE | 2021-07-30 10:57 | MM ---
Reason for exam: screening (asymptomatic). Last mammogram was performed 1 year and 1 month ago. History: Patient is postmenopausal. Family history of premenopausal breast cancer in paternal aunt at age 45. Physical Findings: A clinical breast exam by your physician is recommended on an annual basis and results should be correlated with mammographic findings. MG 3D Screening Mammo W/Cad Bilateral CC and MLO view(s) were taken. Prior study comparison: June 21, 2020, bilateral MG 3d screening mammo w/cad. April 13, 2019, bilateral MG screening mammo w CAD. There are scattered fibroglandular densities. No significant changes when compared with prior studies. ASSESSMENT: Benign, BI-RAD 2 RECOMMENDATION: Routine screening mammogram of both breasts in 1 year.
== END | disposition home or self-care (01) ==
LOC: RADMAMWWP 14:51
PROVIDERS: ATTEND Family Medicine
DX: Z12.31 Encounter for screening mammogram for malignant neoplasm of breast (principal); Z78.0 Asymptomatic menopausal state; Z80.3 Family history of malignant neoplasm of breast
CPT/HCPCS: 77063; 77067

== ENCOUNTER → 2021-10-24 | Outpatient (CLI) | payer BC ==
--- NOTE | 2021-10-24 11:58 | XR ---
EXAMINATION TYPE: XR abdomen 2V DATE OF EXAM: 10/24/2021 COMPARISON: Ultrasound dated 07/03/2021 INDICATION: Lower abdominal pain TECHNIQUE: AP views of the abdomen. FINDINGS: No obvious free air under the diaphragm. No multiple air-fluid levels or signs of acute high-grade sm all bowel obstruction. Fecal loading of the right hemicolon. Multiple gallbladder calculi, appreciated in the previous ultrasound. Suspected few tiny left pelvic phleboliths. IMPRESSION: As above.
== END | disposition home or self-care (01) ==
LOC: RADXRYALE 10:26
PROVIDERS: ATTEND Physician Assistant Medical
DX: K80.20 Calculus of gallbladder without cholecystitis without obstruction (principal)
CPT/HCPCS: 74019

== ENCOUNTER 2021-10-25 10:56 | Emergency (ER) | payer BC ==
[2021-10-25 13:02] VITALS: TEMP 97.9
[2021-10-25] MEDS ORDERED: HYDROmorphone 0.5 MG/0.5 ML SYRINGE IVP STA (15:11)
[2021-10-25] MEDS ORDERED: SODIUM CHLORIDE 0.9% 1,000 ML IV STA (15:11)
[2021-10-25 15:37] LABS: Appearance,Urine Clear (Clear); Bilirubin,Urine Negative (Negative); Blood,Urine Negative (Negative); Color,Urine Yellow; Glucose,Urine (UA) Negative (Negative); Ketones,Urine 1+ (Negative); Leukocyte Esterase,Urine Negative (Negative); Nitrite,Urine Negative (Negative); Protein,Urine Trace (Negative); Specific Gravity,Urine 1.015 (1.001-1.035); Urobilinogen,Urine <2.0 mg/dL (<2.0)
--- NOTE | 2021-10-25 15:58 | US ---
EXAMINATION TYPE: US abdomen limited DATE OF EXAM: 10/25/2021 COMPARISON: 07/03/2021 CLINICAL HISTORY: 56-year-old female scheduled erica next fri, increased RUQ pain. RUQ pain. Hx gall stones. EXAM MEASUREMENTS: Liver Length: 14.9 cm Gallbladder Wall: 0.2 cm CBD: 0.5 cm Right Kidney: 8.8 x 4.7 x 3.8 cm Pancreas: Suboptimal visualization of the pancreatic head and tail due to shadowing from bowel gas. Visualized body shows no gross abnormal body. Liver: Limited detail visualization due to body habitus and rib shadowing. Visualized portions show no gross abnormality. There is some ascites fluid within the hepatorenal recess. Gallbladder: Numerous shadowing gallstones measuring up to 1.5 cm. No harriet hydropic change of the g allbladder. No significant wall thickening. Evidence for sonographic Gaines's sign: neg CBD: wnl Right Kidney: No hydronephrosis or masses seen IMPRESSION: 1. Cholelithiasis but without ancillary imaging findings of acute cholecystitis at this time. 2. However, there is new, abnormal ascites fluid within the hepatorenal recess. Correlate as to poten tial etiology.
[2021-10-25 16:09] LABS: Basophils % (A) 0 %; Eosinophils % (A) 0 %; HGB 12.6 gm/dL (11.4-16.0); Lymphocytes # (A) 0.3 k/uL (1.0-4.8); Lymphocytes % (A) 2 %; MCH 29.9 pg (25.0-35.0); MCHC 34.1 g/dL (31.0-37.0); MCV 87.6 fL (80.0-100.0); Mean Platelet Volume 7.2; Monocytes # (A) 0.4 k/uL (0-1.0); Monocytes % (A) 3 %; Neutrophils # (A) 12.7 k/uL (1.3-7.7); Neutrophils % (A) 94 %; Platelet Count 206 k/uL (150-450); RBC 4.22 m/uL (3.80-5.40); RDW 13.7 % (11.5-15.5); WBC 13.5 k/uL (3.8-10.6)
[2021-10-25 16:15] VITALS: BP 115/69; PULSE 76; RESP 16
[2021-10-25 16:15] LABS: Albumin 4.8 g/dL (3.5-5.0); Calcium 9.7 mg/dL (8.4-10.2); Potassium 4.4 mmol/L (3.5-5.1); Total Protein 7.8 g/dL (6.3-8.2)
[2021-10-25 16:21] LABS: INR 0.9 (<1.2)
--- NOTE | 2021-10-25 16:34 | ED ---
Abdominal Pain HPI - General Chief Complaint: Abdominal Pain Stated Complaint: abd pain Time Seen by Provider: 10/25/21 14:58 Source: patient Mode of arrival: ambulatory Limitations: no limitations - History of Present Illness Initial Comments: Patient is a 56-year-old female with a past medical history of cholelithiasis who presents to the emergency department with worsening right upper quadrant pain. Patient has surgery scheduled with Dr. Oneal for gallbladder removal on November 01. Patient states she has been experiencing intermittent right upper qu adrant abdominal pain however since yesterday it has been constant. In the triage note it is noted patient has lower abdominal pain however patient describes the pain in the right upper quadrant with some radiation to the epigastric region. She does not report lower abdominal pain. She has not taken any medication for pain. She denies fever, chills, shortness of breath, chest pain, nausea, vomiting, back pain, burning with urination, and blood in the urine. States she drinks alcohol very occasionally with no recent alcohol use. - Related Data Home Medications Medication Instructions Recorded Confirmed Multivitamin/Iron/Folic Acid 1 tab PO DAILY 06/10/17 07/10/21 [Centrum Adults Tablet] Atorvastatin [Lipitor] 20 mg PO MOTH 02/22/19 07/12/21 Cholecalciferol [Vitamin D3 (25 1,000 unit PO DAILY 02/22/19 07/10/21 Mcg = 1000 Iu)] Metoprolol Tartrate [Lopressor] 12.5 mg PO BID 02/06/21 07/12/21 Magnesium Tab 110 mg PO DAILY 04/03/21 07/10/21 Previous Rx's Medication Instructions Recorded Dicyclomine [Bentyl] 10 mg PO TID PRN 7 Days #21 capsule 10/25/21 Ondansetron Odt [Zofran Odt] 4 mg PO Q8HR PRN 7 Days #21 tab 10/25/21 Allergies Allergy/AdvReac Type Severity Reaction Status Date / Time Penicillins Allergy Unknown Verified 10/25/21 13:02 Childhood Review of Systems ROS Statement: Those systems with pertinent positive or pertinent negative responses have been documented in the HPI. ROS Other: All systems not noted in ROS Statement are negative. Past Medical History Past Medical History: GERD/Reflux, Hyperlipidemia Additional Past Medical History / Comment(s): hx migraines, palpitations, abnormal post menopauseal vaginal bleeding History of Any Multi-Drug Resistant Organisms: None Reported Past Surgical History: Orthopedic Surgery Additional Past Surgical History / Comment(s): finger sx, cyst removal from ovary Past Anesthesia/Blood Transfusion Reactions: No Reported Reaction, Motion Sickness Past Psychological History: No Psychological Hx Reported Smoking Status: Never smoker Past Alcohol Use History: None Reported Past Drug Use History: None Reported - Past Family History Mother Family Medical History: Cancer General Exam Limitations: no limitations General appearance: alert, in no apparent distress Head exam: Present: atraumatic, normocephalic, normal inspection Eye exam: Absent: scleral icterus Respiratory exam: Present: normal lung sounds bilaterally. Absent: respiratory distress, wheezes, rales, rhonchi, stridor Cardiovascular Exam: Present: regular rate, normal rhythm, normal heart sounds. Absent: systolic murmur, diastolic murmur, rubs, gallop, clicks GI/Abdominal exam: Present: soft, tenderness (RUQ/epigastric, moderate ), normal bowel sounds. Absent: distended, guarding, rebound, rigid Neurological exam: Present: alert, oriented X3, CN II-XII intact Psychiatric exam: Present: normal affect, normal mood Skin exam: Present: warm, dry, intact, normal color. Absent: rash Course Vital Signs 10/25/21 10/25/21 12:59 16:14 Temperature 97.9 F Pulse Rate 85 76 Respiratory 18 16 Rate Blood Pressure 126/77 115/69 O2 Sat by Pulse 99 98 Oximetry Medical Decision Making - Medical Decision Making This is a 56-year-old female with a past medical history of cholelithiasis presenting with worsening right upper quadrant abdominal pain. Thorough history and examination were performed. Patient is well-appearing and in no apparent distress. Patient is concerned that the pain has moved to the epigastric region. She denies recent alcohol use. The abdomen is soft. There is moderate tenderness in the right upper quadrant and epigastric region. Positive Gaines sign. At this time there is concern for acute cholecystitis. I will obtain laboratory studies as well as ultrasound of the gallbladder. Laboratory studies significant for mild elevation of white blood cell count at 13.5 as well as elevated total bilirubin at 2.0. Patient does not appear jaundiced. There is no scleral icterus. Lipase is within normal limits. Ultra sound shows cholelithiasis without findings of acute cholecystitis at this time. There is no gallbladder wall thickening or pericholecystic fluid however there is abnormal ascites fluid within the hepatorenal recess. Results discussed with patient. I did recommend patient stays for observation h owever patient declined. Patient will be discharged with strict return parameters. I'll send her home with Erika. Patient to follow up with Dr. Oneal in 1-2 days. She verbalizes understanding and is agreeable to this plan. Upon discharge patient did have episode of vomiting. She was given Zofran. I will send her home with Zofran as well. Dr. Dominguez is my attending. - Lab Data Result diagrams: 10/25/21 15:14 10/25/21 15:14 Lab Results 10/25/21 10/25/21 10/25/21 Range/Units 15:14 15:14 15:14 WBC 13.5 H (3.8-10.6) k/uL RBC 4.22 (3.80-5.40) m/uL Hgb 12.6 (11.4-16.0) gm/dL Hct 37.0 (34.0-46.0) % MCV 87.6 (80.0-100.0) fL MCH 29.9 (25.0-35.0) pg MCHC 34.1 (31.0-37.0) g/dL RDW 13.7 (11.5-15.5) % Plt Count 206 (150-450) k/uL MPV 7.2 Neutrophils % 94 % Lymphocytes % 2 % Monocytes % 3 % Eosinophils % 0 % Basophils % 0 % Neutrophils # 12.7 H (1.3-7.7) k/uL Lymphocytes # 0.3 L (1.0-4.8) k/uL Monocytes # 0.4 (0-1.0) k/uL Eosinophils # 0.0 (0-0.7) k/uL Basophils # 0.0 (0-0.2) k/uL PT 10.0 (9.0-12.0) sec INR 0.9 (<1.2) APTT 23.0 (22.0-30.0) sec Sodium (137-145) mmol/L Potassium (3.5-5.1) mmol/L Chloride (98-107) mmol/L Carbon Dioxide (22-30) mmol/L Anion Gap mmol/L BUN (7-17) mg/dL Creatinine (0.52-1.04) mg/dL Est GFR (CKD-EPI)AfAm (>60 ml/min/1.73 sqM) Est GFR (CKD-EPI)NonAf (>60 ml/min/1.73 sqM) Glucose (74-99) mg/dL Plasma Lactic Acid Fred (0.7-2.0) mmol/L Calcium (8.4-10.2) mg/dL Total Bilirubin (0.2-1.3) mg/dL AST (14-36) U/L ALT (4-34) U/L Alkaline Phosphatase (38-126) U/L Total Protein (6.3-8.2) g/dL Albumin (3.5-5.0) g/dL Lipase (23-300) U/L Urine Color Yellow Urine Appearance Clear (Clear) Urine pH 5.0 (5.0-8.0) Ur Specific [place] 1.015 (1.001-1.035) Urine Protein Trace H (Negative) Urine Glucose (UA) Negative (Negative) Urine Ketones 1+ H (Negative) Urine Blood Negative (Negative) Urine Nitrite Negative (Negative) Urine Bilirubin Negative (Negative) Urine Urobilinogen <2.0 (<2.0) mg/dL Ur Leukocyte Esterase Negative (Negative) 10/25/21 10/25/21 Range/Units 15:14 15:14 WBC (3.8-10.6) k/uL RBC (3.80-5.40) m/uL Hgb (11.4-16.0) gm/dL Hct (34.0-46.0) % MCV (80.0-100.0) fL MCH (25.0-35.0) pg MCHC (31.0-37.0) g/dL RDW (11.5-15.5) % Plt Count (150-450) k/uL MPV Neutrophils % % Lymphocytes % % Monocytes % % Eosinophils % % Basophils % % Neutrophils # (1.3-7.7) k/uL Lymphocytes # (1.0-4.8) k/uL Monocytes # (0-1.0) k/uL Eosinophils # (0-0.7) k/uL Basophils # (0-0.2) k/uL PT (9.0-12.0) sec INR (<1.2) APTT (22.0-30.0) sec Sodium 134 L (137-145) mmol/L Potassium 4.4 (3.5-5.1) mmol/L Chloride 98 (98-107) mmol/L Carbon Dioxide 28 (22-30) mmol/L Anion Gap 8 mmol/L BUN 13 (7-17) mg/dL Creatinine 0.85 (0.52-1.04) mg/dL Est GFR (CKD-EPI)AfAm 89 (>60 ml/min/1.73 sqM) Est GFR (CKD-EPI)NonAf 77 (>60 ml/min/1.73 sqM) Glucose 113 H (74-99) mg/dL Plasma Lactic Acid Fred 1.0 (0.7-2.0) mmol/L Calcium 9.7 (8.4-10.2) mg/dL Total Bilirubin 2.0 H (0.2-1.3) mg/dL AST 33 (14-36) U/L ALT 15 (4-34) U/L Alkaline Phosphatase 81 (38-126) U/L Total Protein 7.8 (6.3-8.2) g/dL Albumin 4.8 (3.5-5.0) g/dL Lipase 123 (23-300) U/L Urine Color Urine Appearance (Clear) Urine pH (5.0-8.0) Ur Specific [place] (1.001-1.035) Urine Protein (Negative) Urine Glucose (UA) (Negative) Urine Ketones (Negative) Urine Blood (Negative) Urine Nitrite (Negative) Urine Bilirubin (Negative) Urine Urobilinogen (<2.0) mg/dL Ur Leukocyte Esterase (Negative) Disposition Clinical Impression: RUQ pain, Gallstones Disposition: HOME SELF-CARE Condition: Good Instructions (If sedation given, give patient instructions): Gallstones (ED) Additional Instructions: Please take medication as directed. You may also take Tylenol for pain. Follow-up with Dr. Oneal for gallbladder removal as scheduled on November 01. Return to the emergency department if you experience new, concerning, or worsening symptoms. Prescriptions: Dicyclomine [Bentyl] 10 mg PO TID PRN 7 Days #21 capsule PRN Reason: Pain Ondansetron Odt [Zofran Odt] 4 mg PO Q8HR PRN 7 Days #21 tab PRN Reason: Nausea Is patient prescribed a controlled substance at d/c from ED?: No Referrals: Canelo Donald DO [Primary Care Provider] - 1-2 days Time of Disposition: 16:33
[2021-10-25] MEDS ORDERED: ONDANSETRON ODT 4 MG TAB PO STA (17:09)
== END 2021-10-25 17:26 | disposition home or self-care (01) ==
LOC: EC 10:56
DX: K80.20 Calculus of gallbladder without cholecystitis without obstruction (principal); E78.5 Hyperlipidemia, unspecified; Z79.899 Other long term (current) drug therapy; Z88.0 Allergy status to penicillin
CPT/HCPCS: 36415; 80053; 83605; 83690; 85025; 85610; 85730; 81003; 76705; 99284; 96374; 96361; J1170

== ENCOUNTER 2021-11-01 09:39 | Day surgery (SDC) | payer BC ==
[2021-10-29 12:11] VITALS: BMI 23.8
[~2021-11-01 09:39] MED LIST changes: +DEXAMETHASONE SOD PHOSPHATE 4 MG/ML 1 ML VIAL IV ONE; +HEPARIN SODIUM,PORCINE/PF 5,000 UNIT/0.5 ML SYRINGE SQ PRN; +HYDROmorphone 0.5 MG/0.5 ML SYRINGE IVP PRN; +LIDOCAINE 1% (10MG/ML) FOR IV START INTRADERMA PRN; +ONDANSETRON 4 MG/2 ML VIAL IVP ONE
[2021-11-01] MEDS ORDERED: LIDOCAINE 1% (10MG/ML) FOR IV START SQ ONE (10:31)
--- NOTE | 2021-11-01 10:31 | P.GSHP ---
History of Present Illness H&P Date: 11/01/21 Chief Complaint: Chronic cholecystitis 56-year-old female here today for elective cholecystectomy. Has been having epigastric and right upper quadrant pain. History of known gallstones. History of chronic slight elevation of bilirubin. Transaminases and alkaline phosphat ase normal. Denies any change in the color of her skin urine or stool. Past Medical History Past Medical History: GERD/Reflux, Hyperlipidemia Additional Past Medical History / Comment(s): Hx migraines, palpitations, abnormal post menopauseal vaginal bleeding. History of Any Multi-Drug Resistant Organisms: None Reported Past Surgical History: Orthopedic Surgery Additional Past Surgical History / Comment(s): Finger surgery, attempted left ovarian cyst removal, left ovary removed. Past Anesthesia/Blood Transfusion Reactions: Motion Sickness Past Psychological History: No Psychological Hx Reported Smoking Status: Never smoker Past Alcohol Use History: Occasional Past Drug Use History: None Reported - Past Family History Mother Family Medical History: Cancer Medications and Allergies Home Medications Medication Instructions Recorded Confirmed Type Multivitamin/Iron/Folic Acid 1 tab PO DAILY 06/10/17 10/29/21 History [Centrum Adults Tablet] Atorvastatin [Lipitor] 20 mg PO MOTH 02/22/19 11/01/21 History Magnesium Tab 1 tab PO DAILY 04/03/21 11/01/21 History Metoprolol Succinate (ER) [Toprol 25 mg PO QAM 10/29/21 11/01/21 History Xl] Allergies Allergy/AdvReac Type Severity Reaction Status Date / Time Penicillins Allergy Unknown Verified 11/01/21 10:28 Childhood Surgical - Exam Vital Signs Temp Pulse Resp BP Pulse Ox 97.8 F 79 16 116/71 98 11/01/21 10:23 11/01/21 10:23 11/01/21 10:23 11/01/21 10:23 11/01/21 10:23 Physical exam: General: Well-developed, well-nourished HEENT: Normocephalic, sclerae nonicteric Abdomen: Nontender, nondistended Extremities: No edema Neuro: Alert and oriented Assessment and Plan (1) Chronic cholecystitis Narrative/Plan: Will proceed with laparoscopic, possible open cholecystectomy at this time. Risks of bleeding, infection, bile leak, bile duct injury, retained common bile duct stone, trocar injury, conversion to an open procedure, hernia, anesthesia related complications were reviewed. The patient understands and wishes to proceed. Current Visit: Yes Status: Acute Code(s): K81.1 - CHRONIC CHOLECYSTITIS SNOMED Code(s): 64302638
[2021-11-01] MEDS ORDERED: BUPIVACAIN-EPI 0.25%-1:200,000 30 ML VIAL SQ ONE ×3 (10:52→11:36)
[2021-11-01] MEDS ORDERED: PHENYLEPHRINE-0.9% NACL SYG 1,000 MCG/10 ML SYRINGE ONE (11:06)
[2021-11-01] MEDS ORDERED: LIDOCAINE 2% INJ 20 MG/ML (2 ML VIAL) ONE (11:06)
[2021-11-01] MEDS ORDERED: SUCCINYLCHOLINE CHLORIDE 100 MG/5 ML SYR IV ONE (11:06)
[2021-11-01] MEDS ORDERED: fentaNYL (PF) 50 MCG/ML 2 ML AMP ONE (11:06)
[2021-11-01] MEDS ORDERED: NEOSTIGMINE 1 MG/ML 10 ML VIAL ONE (11:06)
[2021-11-01] MEDS ORDERED: PROPOFOL 10 MG/ML 20 ML VIAL IV ONE (11:06)
[2021-11-01] MEDS ORDERED: KETOROLAC 15 MG/ML 1 ML VIAL ONE (11:06)
[2021-11-01] MEDS ORDERED: ROCURONIUM 10 MG/ML (5 ML VIAL) IV ONE (11:06)
[2021-11-01] MEDS ORDERED: GLYCOPYRROLATE 0.2 MG/ML 2 ML VIAL ONE (11:06)
[2021-11-01] MEDS ORDERED: MIDAZOLAM 2 MG/2 ML VIAL ONE (11:06)
--- NOTE | 2021-11-01 12:26 | P.OP ---
Date of Procedure: 11/01/21 Procedure(s) Performed: PREOPERATIVE DIAGNOSIS: Chronic cholecystitis POSTOPERATIVE DIAGNOSIS: Same PROCEDURE: Laparoscopic cholecystectomy SURGEON: Jm EBL: Minimal see anesthesia record ANESTHESIA: Gen. COMPLICATIONS: None OPERATIVE PROCEDURE: The patient was brought and placed on the operating room table in the supine position. The patient was placed under general anesthesia at that time. The abdomen was prepped and draped in the usual sterile fashion. A small vertical infraumbilical incision was made. The fascia was grasped with the Marilyn forceps. The fascia was retracted anteriorly. The Veress needle was advanced into the peritoneal cavity. The saline drop test was normal. Insufflation took place up to 15 mmHg. A 5 mm optical trocar was advanced and the peritoneal cavity. 2 additional 5 mm trochars were placed in the right upper quadrant under direct visualization. A 12 mm trocar was advanced into the epigastric incision site. The gallbladder was retracted superiorly and laterally. The peritoneum overlying the infundibulum was bluntly dissected. The patient's cystic duct was visualized. The junction between the cystic duct common and hepatic duct was identified. The critical view of safety was achieved after blunt dissection. The cystic duct was then divided after placement of 3 12 mm clips on the patient's side and one on the specimen side. The cystic artery was identified and clipped as well. A small vessel was seen along the gallbladder fossa and clipped as well. The gallbladder was then removed from the liver bed using electrocautery. The gallbladder was then removed from the epigastric trocar site with an Endo Catch bag. The gallbladder fossa was irrigated with saline. There was no evidence of any bleeding or biliary drainage seen. The fascia at the 12 millimeter site was closed using a Thang-Daniel 0 Vicryl stitch. The trochars were then removed. The skin at all 4 sites was closed using a 4-0 Monocryl stitch. Skin glue was utilized on the incision sites. At the end of this procedure the sponge and needle counts were correct. DISPOSITION: Stable to the recovery room
[2021-11-01 12:28] VITALS: TEMP 97.2
[2021-11-01] MEDS ORDERED: ACETAMINOPHEN TAB 325 MG TAB PO SCH (12:30)
[2021-11-01] MEDS ORDERED: ONDANSETRON 4 MG/2 ML VIAL ONE (14:42)
[2021-11-01] MEDS ORDERED: ONDANSETRON 4 MG/2 ML VIAL IVP ONE (14:45)
[2021-11-01 14:54] VITALS: BP 122/75; RESP 16
[2021-11-01 15:42] VITALS: PULSE 67
[2021-11-01] MEDS ORDERED: IBUPROFEN 600 MG TAB PO SCH (16:00)
== END 2021-11-01 16:00 | disposition home or self-care (01) ==
LOC: OR 09:39
PROVIDERS: ATTEND Surgery
DX: K80.10 Calculus of gallbladder with chronic cholecystitis without obstruction (principal); K21.9 Gastro-esophageal reflux disease without esophagitis; E78.5 Hyperlipidemia, unspecified; G43.909 Migraine, unspecified, not intractable, without status migrainosus; R00.2 Palpitations; Z98.890 Other specified postprocedural states; Z90.722 Acquired absence of ovaries, bilateral; Z82.69 Family history of other diseases of the musculoskeletal system and connective tissue; Z80.7 Family history of other malignant neoplasms of lymphoid, hematopoietic and related tissues; Z79.899 Other long term (current) drug therapy; Z88.0 Allergy status to penicillin
CPT/HCPCS: 88304; 47562; J2250; J1100; J2710; J0690; J2405; J3010; J1885; J2370; J0330; J2704; J1170; J1644; J2001

== ENCOUNTER 2021-12-16 18:49 | Emergency (ER) | payer BC ==
[2021-12-16 19:06] VITALS: TEMP 99.1
[2021-12-16] MEDS ORDERED: ONDANSETRON 4 MG/2 ML VIAL IVP STA (22:49)
[2021-12-16] MEDS ORDERED: SODIUM CHLORIDE 0.9% 1,000 ML IV STA (22:49)
[2021-12-16] MEDS ORDERED: HYDROmorphone 0.5 MG/0.5 ML SYRINGE IVP STA (22:49)
--- NOTE | 2021-12-16 22:54 | ED ---
General Adult HPI - General Chief complaint: Abdominal Pain Stated complaint: abd pain Time Seen by Provider: 12/16/21 22:20 Source: patient, RN notes reviewed Mode of arrival: ambulatory - History of Present Illness Initial comments: 56-year-old female presents to the emergency Department with complaints of generalized abdominal discomfort, worse on the right side, but radiates to the back, pelvis, and extends across the upper abdomen. Describes her pain is cramping in nature. Reports increased discomfort with deep breathing. States she was febrile today with a temperature of 99.9. Patient reports having a CT of the abdomen and pelvis done on Thursday in which she was found to have a large right-sided ovarian mass. States she is scheduled to see her PCP is the morning to further review the CT findings. States she became concerned this evening that perhaps the cyst ruptured due to increased discomfort. Denies headache, chest pain, shortness of breath, nausea, vomiting, diarrhea, dysuria, or hematuria. - Related Data Home Medications Medication Instructions Recorded Confirmed Atorvastatin [Lipitor] 20 mg PO MOTH@2100 02/22/19 12/16/21 Metoprolol Succinate (ER) [Toprol 25 mg PO DAILY 10/29/21 12/16/21 Xl] Previous Rx's Medication Instructions Recorded HYDROcodone/APAP 5-325MG [[place] 5] 1 each PO Q6HR PRN #12 tab 12/17/21 Allergies Allergy/AdvReac Type Severity Reaction Status Date / Time Penicillins Allergy Unknown Verified 12/16/21 23:04 Childhood Review of Systems ROS Statement: Those systems with pertinent positive or pertinent negative responses have been documented in the HPI. ROS Other: All systems not noted in ROS Statement are negative. Past Medical History Past Medical History: GERD/Reflux, Hyperlipidemia Additional Past Medical History / Comment(s): hx migraines, palpitations, abnor mal post menopauseal vaginal bleeding History of Any Multi-Drug Resistant Organisms: None Reported Past Surgical History: Cholecystectomy Additional Past Surgical History / Comment(s): finger sx, cyst removal from ovary Past Anesthesia/Blood Transfusion Reactions: No Reported Reaction, Motion Sickne ss Past Psychological History: No Psychological Hx Reported Past Alcohol Use History: None Reported - Past Family History Mother Family Medical History: Cancer General Exam Limitations: no limitations (Well-developed, well-nourished female in no acute distress. Initial temperature 99.1, recheck 98.7, pulse 102, recheck 77, respirations 18, blood pressure 99/65, pulse ox 97% on room air.) General appearance: alert, in no apparent distress ENT exam: Present: normal exam, normal oropharynx, mucous membranes moist Respiratory exam: Present: normal lung sounds bilaterally. Absent: respiratory distress, wheezes, rales, rhonchi, stridor Cardiovascular Exam: Present: regular rate, normal rhythm, normal heart sounds. Absent: systolic murmur, diastolic murmur, rubs, gallop, clicks GI/Abdominal exam: Present: soft, tenderness (mild tenderness upon palpation of the suprapubic and right lower quadrant.), normal bowel sounds. Absent: distended, guarding, rebound, rigid Extremities exam: Present: normal inspection, full ROM, normal capillary refill. Absent: pedal edema Back exam: Absent: CVA tenderness (R), CVA tenderness (L) Neurological exam: Present: alert, oriented X3, CN II-XII intact Psychiatric exam: Present: normal affect, normal mood Skin exam: Present: warm, dry, intact, normal color. Absent: rash Course Vital Signs 12/16/21 12/17/21 19:02 03:15 Temperature 99.1 F Pulse Rate 102 H 67 Respiratory 18 15 Rate Blood Pressure 99/65 127/67 O2 Sat by Pulse 97 98 Oximetry - Reevaluation(s) Reevaluation #1: 12/17/21 00:05 Upon reassessment, patient reports improvement with pain medication and is comfortable to proceed to CT. Medical Decision Making - Medical Decision Making This is a pleasant 56-year-old female with a past medical history of cholecystectomy, GERD, and hyperlipidemia who presents to the emergency department for evaluation of right-sided abdominal pain. Upon exam, patient is well-appearing and in no acute distress, though does appear moderately uncomfortable. She explained that she was diagnosed with a large right sided ovarian mass on Thursday and is concerned that it had ruptured. Patient is afebrile with stable vital signs. Abdomen is soft with mild tenderness upon palpation. She was given Dilaudid and Zofran with significant improvement. CT shows no masses unchanged from previous scan. Laboratory studies were obtained showing some leukocytosis. This patient's care was discussed with my attending at length. The patient will be discharged home with a copy of labs and instructions to follow up with her PCP in the morning as scheduled. Prescribed [place] for pain. Return parameters discussed in detail. Patient verbalizes understanding and agrees with this plan. Attending:Christiano. - Lab Data Result diagrams: 12/16/21 23:04 12/16/21 23:04 Lab Results 12/16/21 12/16/21 Range/Units 23:04 23:04 WBC 14.9 H (3.8-10.6) k/uL RBC 4.00 (3.80-5.40) m/uL Hgb 11.4 (11.4-16.0) gm/dL Hct 34.4 (34.0-46.0) % MCV 85.9 (80.0-100.0) fL MCH 28.6 (25.0-35.0) pg MCHC 33.3 (31.0-37.0) g/dL RDW 13.6 (11.5-15.5) % Plt Count 221 (150-450) k/uL MPV 7.8 Neutrophils % 92 % Lymphocytes % 3 % Monocytes % 4 % Eosinophils % 0 % Basophils % 0 % Neutrophils # 13.7 H (1.3-7.7) k/uL Lymphocytes # 0.5 L (1.0-4.8) k/uL Monocytes # 0.6 (0-1.0) k/uL Eosinophils # 0.0 (0-0.7) k/uL Basophils # 0.0 (0-0.2) k/uL Sodium 135 L (137-145) mmol/L Potassium 5.0 (3.5-5.1) mmol/L Chloride 96 L (98-107) mmol/L Carbon Dioxide 27 (22-30) mmol/L Anion Gap 12 mmol/L BUN 11 (7-17) mg/dL Creatinine 1.04 (0.52-1.04) mg/dL Est GFR (CKD-EPI)AfAm 70 (>60 ml/min/1.73 sqM) Est GFR (CKD-EPI)NonAf 60 (>60 ml/min/1.73 sqM) Glucose 118 H (74-99) mg/dL Calcium 9.8 (8.4-10.2) mg/dL Total Bilirubin 1.7 H (0.2-1.3) mg/dL AST 28 (14-36) U/L ALT 11 (4-34) U/L Alkaline Phosphatase 75 (38-126) U/L Total Protein 7.2 (6.3-8.2) g/dL Albumin 4.4 (3.5-5.0) g/dL - Radiology Data Radiology results: report reviewed, image reviewed CT of the abdomen and pelvis with contrast was obtained. Report was reviewed in its entirety. Impression per Dr. 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 There is no abdominal ascites fluid compared to old exam. There is some some segmental atelectasis at the lung bases which appears new compared with exam. Disposition Clinical Impression: Abdominal pain, Adnexal mass Disposition: HOME SELF-CARE Condition: Stable Instructions (If sedation given, give patient instructions): Ovarian Cyst (ED) Additional Instructions: Take [place] if needed for severe pain. Keep follow-up appointment scheduled for today. Return to the emergency department with any new, worsening, or concerning symptoms. Prescriptions: HYDROcodone/APAP 5-325MG [[place] 5] 1 each PO Q6HR PRN #12 tab PRN Reason: Pain Is patient prescribed a controlled substance at d/c from ED?: Yes If prescribed controlled substance>3 days was MAPS reviewed?: Prescribed <3 Days If opioid is for acute pain is fill amount 7 days or less?: Yes Referrals: Canelo Donald DO [Primary Care Provider] - 1-2 days Time of Disposition: 03:01
[2021-12-16 23:23] LABS: Basophils % (A) 0 %; Eosinophils % (A) 0 %; HCT 34.4 % (34.0-46.0); HGB 11.4 gm/dL (11.4-16.0); Lymphocytes # (A) 0.5 k/uL (1.0-4.8); Lymphocytes % (A) 3 %; MCH 28.6 pg (25.0-35.0); MCHC 33.3 g/dL (31.0-37.0); MCV 85.9 fL (80.0-100.0); Mean Platelet Volume 7.8; Monocytes # (A) 0.6 k/uL (0-1.0); Monocytes % (A) 4 %; Neutrophils # (A) 13.7 k/uL (1.3-7.7); Neutrophils % (A) 92 %; Platelet Count 221 k/uL (150-450); RDW 13.6 % (11.5-15.5); WBC 14.9 k/uL (3.8-10.6)
[2021-12-16 23:35] LABS: Albumin 4.4 g/dL (3.5-5.0); Calcium 9.8 mg/dL (8.4-10.2); Total Bilirubin 1.7 mg/dL (0.2-1.3); Total Protein 7.2 g/dL (6.3-8.2)
--- NOTE | 2021-12-17 00:37 | CT ---
EXAMINATION TYPE: CT abdomen pelvis wo con DATE OF EXAM: 12/17/2021 COMPARISON: 12/13/2021 HISTORY: RLQ PAIN CT DLP: 400.9 mGycm Automated exposure control for dose reduction was used. Images obtained from the diaphragm to the floor the pelvis with no contrast. There is some subsegmental atelectasis at the lung bases. Heart size is normal. No pericardial effusi on. Liver and spleen are intact. There are clips from cholecystectomy. There is small calcified splen ic granuloma. The stomach is intact. The bile ducts are not dilated. There is abdominal ascites fluid . There is no evidence of a pancreatic mass. There is no adrenal mass. Kidneys have normal size. No hydronephrosis. Ureters are not dilated. There is no retroperitoneal adenopathy. No inguinal hernia. Urinary bladder is almost empty. It appears to be a low density pelvic mass that measures approximately 11 cm in the midline lower pelvis. Uterus i s anteverted. Uterus appears small and measures 5.5 cm in length. There is no evidence of a bowel obstruction. No mesenteric edema. No sign of free air. Appendix not c learly seen. The lumbar vertebra appear intact. No compression fracture. Bony pelvis is intact. Hip joints are int act. 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 There is new abdominal ascites fluid compared to old exam. There is some subsegmental atelectasis at the lung bases which appears new compared to old exam.
[2021-12-17 03:16] VITALS: BP 127/67; PULSE 67; RESP 15
== END 2021-12-17 03:22 | disposition home or self-care (01) ==
LOC: EC 18:49
DX: N83.8 Other noninflammatory disorders of ovary, fallopian tube and broad ligament (principal); E78.5 Hyperlipidemia, unspecified; Z88.0 Allergy status to penicillin
CPT/HCPCS: 36415; 80053; 85025; 74176; 99284; 96374; 96375; 96361; J2405; J1170

== ENCOUNTER → 2022-03-07 | Outpatient (CLI) | payer BC ==
--- NOTE | 2022-03-08 07:56 | CT ---
EXAMINATION TYPE: CT abdomen pelvis w con DATE OF EXAM: 03/07/2022 COMPARISON: 12/17/2021 HISTORY: ovarian ca. obs for mets CT DLP: 455.30 mGycm CONTRAST: CT scan of the abdomen and pelvis is performed with Oral Contrast and with IV Contrast, patient injec neto with 90 mL of Isovue 300. FINDINGS: LUNG BASES-: No visible nodule. No infiltrate. LIVER/GB: The gallbladder is surgically absent. No space occupying hepatic lesion. Biliary tree is of normal caliber. PANCREAS: No inflammation. No distinct mass. SPLEEN: No splenic enlargement. No lesion seen. ADRENALS: No nodule. No thickening. KIDNEYS/BLADDER: No hydronephrosis. No nephrolithiasis. No distinct renal mass. Urinary bladder g rossly unremarkable. BOWEL: Normal appendix. Normal bowel caliber. No inflammation. GENITAL ORGANS: There is evidence of the hysterectomy and bilateral oophorectomy. Previously noted cy stic mass within the pelvis is no longer visualized. There is no evidence for free fluid within the a bdomen or pelvis at this time. LYMPH NODES: No greater than 1cm abdominal or pelvic lymph nodes are appreciated. AORTA: No significant abnormality. OSSEOUS STRUCTURES: No significant abnormality is seen. OTHER: No significant additional abnormality is seen. IMPRESSION: 1. Excision of the previously noted cystic ovarian mass. No evidence for tumor recurrence or metastat ic disease within the abdomen or pelvis. Resolution of previously noted ascites.
== END | disposition home or self-care (01) ==
LOC: RADCTMAIN 17:08
PROVIDERS: ATTEND Internal Medicine Hematology & Oncology
DX: C56.9 Malignant neoplasm of unspecified ovary (principal)
CPT/HCPCS: 82565; 84520; 74177; 36415; Q9967

== ENCOUNTER 2022-07-12 13:23 | Emergency (ER) | payer BC ==
[2022-07-12 13:29] VITALS: BP 134/69; PULSE 88; RESP 20; TEMP 98
--- NOTE | 2022-07-12 13:55 | ED ---
Extremity Problem HPI - General Chief complaint: Extremity Problem,Nontraumatic Stated complaint: Poss Blood Clot L Arm Time Seen by Provider: 07/12/22 13:29 Source: patient, family, RN notes reviewed Mode of arrival: ambulatory Limitations: no limitations - History of Present Illness Initial comments: This is a 57-year-old female who presents to the emergency department for left arm pain. She had an IV removed from her left arm 2 weeks ago after receiving a chemotherapy infusion. She has had increasing pain to the right arm over the last several days, however when she woke up this morning, she noticed a large red lump. This is tender to the touch. Denies any history of similar symptoms in the past. She and her state that they want to make sure that this is not a blood clot. Denies any fevers, chills, sore throat, cough, dyspnea, chest pain, palpitations, abdominal pain, nausea, vomiting, diarrhea, back pain, or headac hes. MD Complaint: extremity pain, extremity swelling History of Same: No - Related Data Home Medications Medication Instructions Recorded Confirmed Atorvastatin [Lipitor] 20 mg PO MOTH@2100 02/22/19 07/04/22 Metoprolol Succinate (ER) [Toprol 25 mg PO DAILY 10/29/21 07/04/22 Xl] Cholecalciferol (Vitamin D3) 125 mcg PO DAILY 06/12/22 07/04/22 [Vitamin D3 (125 MCG = 5,000 IU)] Docusate Sodium [Dok] 100 mg PO BID 06/12/22 07/04/22 Magnesium Citrate 125 mg PO DAILY 06/12/22 07/04/22 Multivit-Min/Iron/Folic/Lutein 1 each PO DAILY 06/12/22 07/04/22 [Centrum Silver Women Tablet] Ondansetron [Zofran] 4 mg PO Q8HR PRN 06/12/22 07/04/22 Famotidine [Pepcid] 10 mg PO BID 07/04/22 07/04/22 Allergies Allergy/AdvReac Type Severity Reaction Status Date / Time Penicillins Allergy Unknown Verified 07/12/22 13:28 Childhood Review of Systems ROS Statement: Those systems with pertinent positive or pertinent negative responses have been documented in the HPI. ROS Other: All systems not noted in ROS Statement are negative. Past Medical History Past Medical History: Cancer, GERD/Reflux, Hyperlipidemia Additional Past Medical History / Comment(s): hx migraines, palpitations, abnormal post menopauseal vaginal bleeding, ovarian CA, uterine CA History of Any Multi-Drug Resistant Organisms: None Reported Past Surgical History: Cholecystectomy, Hysterectomy Additional Past Surgical History / Comment(s): finger sx, cyst removal from ovary Past Anesthesia/Blood Transfusion Reactions: No Reported Reaction, Motion Sickness Past Psychological History: No Psychological Hx Reported Smoking Status: Never smoker Past Alcohol Use History: None Reported Past Drug Use History: None Reported - Past Family History Mother Family Medical History: Cancer General Exam Limitations: no limitations General appearance: alert, in no apparent distress Head exam: Present: atraumatic, normocephalic, normal inspection Respiratory exam: Present: normal lung sounds bilaterally. Absent: respiratory distress, wheezes, rales, rhonchi, stridor Cardiovascular Exam: Present: regular rate, normal rhythm, normal heart sounds. Absent: systolic murmur, diastolic murmur, rubs, gallop, clicks Extremities exam: Present: other (Erythematous and tender lump near the antecubital fossa. 2+ radial pulses and capillary refill less than 1 second.) Neurological exam: Present: alert, oriented X3, CN II-XII intact Psychiatric exam: Present: normal affect, normal mood Course Vital Signs 07/12/22 13:25 Temperature 98 F Pulse Rate 88 Respiratory 20 Rate Blood Pressure 134/69 O2 Sat by Pulse 99 Oximetry Medical Decision Making - Medical Decision Making This is a 57-year-old female who presents to the emergency department for left arm pain and swelling. Was pt. sent in by a medical professional or institution? @ -No Did you speak to anyone other than the patient for history? @ -Her Did you review nursing and triage notes? @ -Yes, and I agree, it is accurate with regards to the patient's symptoms. Were old charts reviewed? @ -No Differential Diagnosis? @ -Differential Arm Pain/Swelling: DVT, fracture, dislocation, contusion, superficial thrombophlebitis, cellulitis, this is not meant to be an all-inclusive list. U/S interpreted by me (1pt. min.)? @ -Duplex US of the left upper extremity obtained. My interpretation identifies a superficial thrombosis without any evidence of a DVT . What testing was considered but not performed? (CT, X-rays, U/S, labs)? Why? @ -None What meds were considered but not given? Why? @ -None Did you discuss the management of the patient with other professionals? @ -No Did you reconcile home meds? @ -No Was smoking cessation discussed for >3mins.? @ -No Was critical care preformed (if so, how long)? @ -No Were there social determinants of health that impacted care today? How? (Homelessness, low income, unemployed, alcoholism, drug addiction, transportation, low edu. Level, literacy, decrease access to med. care, skilled nursing, rehab)? @ -No Was there de-escalation of care discussed even if they declined? (Discuss DNR or withdrawal of care, Hospice)? @ -No What co-morbidities impacted this encounter? (DM, HTN, Smoking, COPD, CAD, Cance r, CVA, Hep., AIDS, mental health diagnosis, sleep apnea, morbid obesity)? @ -Cancer Was patient admitted / discharged? @ -Discharged. Duplex ultrasound of the left upper extremity obtained revealing a superficial thrombosis as opposed to a DVT. This is not in close proximity to the deep system and no anticoagulation is indicated. Findings reviewed with the patient. Advised anti-inflammatories, warm compresses, and elevation. She'll follow up with her primary care provider to ensure that this resolves on its own. Undiagnosed new problem with uncertain prognosis? @ -None Drug Therapy requiring intensive monitoring for toxicity (Heparin, Nitro, Insulin, Cardizem)? @ -None Were any procedures done? @ -None Diagnosis/symptom? @ -Superficial venous thrombosis Acute, or Chronic, or Acute on Chronic? @ -Acute Uncomplicated (without systemic symptoms) or Complicated (systemic symptoms)? @ -Uncomplicated Side effects of treatment? @ -None Exacerbation, Progression, or Severe Exacerbation] @ -Not applicable Poses a threat to life or bodily function? @ -No Return precautions reviewed in depth, the patient is instructed to return to the emergency department with any new, worsening, or concerning symptoms. Patient verbalized understanding. This case was discussed in detail with the attending ED physician, Dr. Weathers. Presentation, findings, and treatment plan discussed in detail as well. - Radiology Data Radiology results: report reviewed, image reviewed Disposition Clinical Impression: Superficial venous thrombosis of left arm Disposition: HOME SELF-CARE Instructions (If sedation given, give patient instructions): Superficial Thrombophlebitis (ED) Additional Instructions: Return to the emergency department with any new, worsening, or concerning symptoms. Take anti-inflammatories such as ibuprofen (when you are not going through your treatments), elevate the arm, and apply warm compresses. Follow up with your primary care provider in 1-2 days. Is patient prescribed a controlled substance at d/c from ED?: No Referrals: Canelo Donald DO [Primary Care Provider] - 1-2 days
--- NOTE | 2022-07-12 14:48 | US ---
EXAMINATION TYPE: US venous doppler duplex UE LT DATE OF EXAM: 07/12/2022 COMPARISON: NONE CLINICAL HISTORY: Pain and swelling after IV removal. Patient states having IV in left mid forearm x 2 weeks ago. Area of palpable redness starting this morning. Not on blood thinners. SIDE PERFORMED: Left Left Arm: Negative for DVT. Positive for SVT at area of previous IV site mid forearm extending proxi mal to area of redness. SVT is not near deep veins. IMPRESSION: No sign of deep vein thrombosis in the left arm. There is some superficial venous thrombus.
== END 2022-07-12 15:21 | disposition home or self-care (01) ==
LOC: EC 13:23
DX: I82.612 Acute embolism and thrombosis of superficial veins of left upper extremity (principal); E78.5 Hyperlipidemia, unspecified; Z88.0 Allergy status to penicillin; Z79.899 Other long term (current) drug therapy
CPT/HCPCS: 99283

== ENCOUNTER → 2022-07-30 | Outpatient (CLI) | payer BC ==
--- NOTE | 2022-07-31 18:25 | MM ---
Reason for Exam: Screening (asymptomatic). Last screening mammogram was performed 12 month(s) ago. Patient History: Menarche at age 13. First Full-Term at age 24. Left ovary removed at age 37. Right ovary removed at age 56. Hysterectomy at age 56. Postmenopausal. Ovarian cancer, age 56. Previous chemotherapy at age 56. Paternal aunt had breast cancer, age 45. Risk Values: Sri 5 year model risk: 1.1%. NCI Lifetime model risk: 7.1%. Prior Study Comparison: 04/13/2019 Bilateral Screening Mammogram, [facility]. 06/21/2020 Bilateral Screening Mammogram, [facility]. 07/29/2021 Bilateral Screening Mammogram, [facility]. Tissue Density: The breast tissue is heterogeneously dense. This may lower the sensitivity of mammography. Findings: Analyzed By CAD. Areas of asymmetric density remain unchanged. There is no suspicious group of microcalcifications or new suspicious mass in either breast. Overall Assessment: Benign, BI-RAD 2 Management: Screening Mammogram of both breasts in 1 year. 1. Patient should continue monthly self breast exams. 2. A clinical breast exam by your physician is recommended on an annual basis. 3. This exam should not preclude additional follow-up of suspicious palpable abnormalities. Electronically signed and approved by: Adilene Dawson M.D. Radiologist
== END | disposition home or self-care (01) ==
LOC: RADMAMWWP 09:31
PROVIDERS: ATTEND Family Medicine
DX: Z12.31 Encounter for screening mammogram for malignant neoplasm of breast (principal); Z78.0 Asymptomatic menopausal state; Z80.3 Family history of malignant neoplasm of breast
CPT/HCPCS: 77063; 77067

== ENCOUNTER → 2022-08-25 | Outpatient (CLI) | payer BC ==
--- NOTE | 2022-08-25 13:23 | CT ---
EXAMINATION TYPE: CT abdomen pelvis w con CT DLP: 518.60 mGycm, Automated exposure control for dose reduction was used. DATE OF EXAM: 08/25/2022 12:49 PM COMPARISON: CT abdomen pelvis most recent from 03/07/2022, 12/17/2021 . CLINICAL INDICATION:Female, 57 years old with history of C56.9 ovarian ca; Hx ovarian/uterine, follow up. TECHNIQUE: Standard CT of the abdomen and pelvis following the administration of 100 cc of Isovue 3 00 IV contrast material and oral contrast. Coronal and sagittal reformats were performed. FINDINGS: LOWER CHEST: Unremarkable ABDOMEN LIVER: Unremarkable GALLBLADDER AND BILE DUCTS: The gallbladder is surgically absent. PANCREAS: Unremarkable. SPLEEN: Unremarkable. ADRENAL GLANDS: Unremarkable. KIDNEYS AND URETERS: No evidence of hydronephrosis or renal calculus. The kidneys enhance symmetrical ly without suspicious focal lesion. PELVIS BLADDER: Incompletely distended but grossly unremarkable. REPRODUCTIVE: The uterus is surgically absent. Both ovaries are surgically absent. No suspicious soft tissue to suggest local recurrence. ABDOMEN & PELVIS STOMACH AND BOWEL: Stomach and duodenum are unremarkable no focal wall thickening or surrounding infl ammatory changes. Enteric contrast reaches the ascending colon. Mild amount of stool is present throu ghout the colon. No evidence of bowel obstruction. PERITONEUM: No evidence of pneumoperitoneum or free fluid. No peritoneal nodularity identified. VASCULATURE: No evidence of aortic aneurysm. MUSCULOSKELETAL: No acute osseous abnormalities. No aggressive osseous lesion. LYMPH NODES: No gross evidence for lymphadenopathy. SOFT TISSUE/ABDOMINAL WALL: Unremarkable IMPRESSION: No evidence for tumor recurrence or metastatic disease within the abdomen and pelvis.
== END | disposition home or self-care (01) ==
LOC: RADCTMAIN 10:39
PROVIDERS: ATTEND Internal Medicine Hematology & Oncology
DX: C54.9 Malignant neoplasm of corpus uteri, unspecified (principal); C56.9 Malignant neoplasm of unspecified ovary; D61.810 Antineoplastic chemotherapy induced pancytopenia; E78.5 Hyperlipidemia, unspecified
CPT/HCPCS: 74177; Q9967

== ENCOUNTER → 2023-02-26 | Outpatient (CLI) | payer BC ==
--- NOTE | 2023-02-26 22:13 | CT ---
EXAMINATION TYPE: CT abdomen pelvis w con DATE OF EXAM: 02/26/2023 COMPARISON: 08/25/2022 INDICATION: h/o ovarian and uterine CA DLP: 1132 mGycm, Automated exposure control for dose reduction was used. CONTRAST: 100 mL of Isovue 300. Study performed with Oral Contrast TECHNIQUE: Axial images were obtained from above the diaphragm to the pubic rami in the axial plane a t 5 mm thick sections. Reconstructed images are reviewed on the computer in the coronal plane. FINDINGS: Limited CT sections are obtained the lung bases. The lung bases are clear. CT ABDOMEN: Liver: Normal Spleen: Normal Pancreas: Normal Adrenal glands: The adrenal glands are normal. Gallbladder: Surgically absent Kidneys: No masses are evident. No hydronephrosis is present. No cysts are present. Delayed images were obtained through the kidneys, which remain unremarkable. Aorta: Normal Inferior vena cava: Normal. CT PELVIS: Loops of bowel within the abdomen and pelvis are normal. Cecum may have some mild wall thickening . This could be related to peristalsis. No suspicious inflammatory changes evident. Wall thickening m ay have been present on the comparison study raising the possibility of underlying mass. Follow-up ev aluation is recommended. Appendix: Not identified. No dilated tubular structure or inflammatory change is evident. Urinary bladder: Normal. Genitourinary structures: Uterus is not identified. Adnexa appear unremarkable. No cysts are evident. Osseous structures: No suspicious lytic or sclerotic lesions. IMPRESSION: 1. No suspicious changes to suggest recurrent or metastatic ovarian cancer. No changes to suggest me tastatic uterine cancer. 2. There is some mild wall thickening through the proximal ascending colon which may been present pre viously. Recommend additional workup of this region. Underlying neoplasm is not excluded. Differentia l diagnosis includes peristalsis and mild colitis.
== END | disposition home or self-care (01) ==
LOC: RADCTMAIN 12:23
PROVIDERS: ATTEND Internal Medicine
DX: C56.9 Malignant neoplasm of unspecified ovary (principal); C54.9 Malignant neoplasm of corpus uteri, unspecified; K63.89 Other specified diseases of intestine; G99.0 Autonomic neuropathy in diseases classified elsewhere; E78.5 Hyperlipidemia, unspecified; Z90.49 Acquired absence of other specified parts of digestive tract
CPT/HCPCS: 74177; Q9967

== ENCOUNTER → 2023-07-27 | Outpatient (CLI) | payer BC ==
--- NOTE | 2023-07-27 14:07 | CT ---
EXAMINATION TYPE: CT abdomen pelvis w con DATE OF EXAM: 07/27/2023 COMPARISON: 02/26/2023 HISTORY: f/u prior abnormal scan CT DLP: 558.9 mGycm CONTRAST: CT scan of the abdomen and pelvis is performed with Oral Contrast and with IV Contrast, patient injec neto with 100 mL of Isovue 300. FINDINGS: LUNG BASES-: No visible nodule. No infiltrate. LIVER/GB: The gallbladder is surgically absent. Borderline hepatic steatosis. No space occupying hepa tic lesion. Biliary tree is of normal caliber. PANCREAS: No inflammation. No distinct mass. SPLEEN: No splenic enlargement. No lesion seen. ADRENALS: No nodule. No thickening. KIDNEYS/BLADDER: No hydronephrosis. No nephrolithiasis. No distinct renal mass. Urinary bladder g rossly unremarkable. BOWEL: Persistent wall thickening involving the ascending colon. Correlate with direct visualization and/or barium enema. Nonvisualization of the appendix. GENITAL ORGANS: Hysterectomy and bilateral oophorectomy changes without evidence of residual or recur rent mass. LYMPH NODES: No greater than 1cm abdominal or pelvic lymph nodes are appreciated. AORTA: No significant abnormality. OSSEOUS STRUCTURES: No significant abnormality is seen. OTHER: No significant additional abnormality is seen. IMPRESSION: 1. Hysterectomy and bilateral oophorectomy changes without evidence of residual or recurrent mass. 2.Persistent wall thickening involving the ascending colon. Correlate with direct visualization and/o r barium enema.
== END | disposition home or self-care (01) ==
LOC: RADCTMAIN 12:09
PROVIDERS: ATTEND Family Medicine
DX: K63.89 Other specified diseases of intestine (principal); K21.9 Gastro-esophageal reflux disease without esophagitis; R93.3 Abnormal findings on diagnostic imaging of other parts of digestive tract
CPT/HCPCS: 74177; Q9967

== ENCOUNTER → 2023-08-03 | Outpatient (CLI) | payer BC ==
--- NOTE | 2023-08-04 09:41 | MM ---
Reason for Exam: Screening (asymptomatic). Last screening mammogram was performed 12 month(s) ago. Patient History: Menarche at age 13. First Full-Term at age 24. Left ovary removed at age 37. Right ovary removed at age 56. Hysterectomy at age 56. Postmenopausal. Ovarian cancer, age 56. Previous chemotherapy at age 56. Paternal aunt had breast cancer, age 45. Risk Values: Sri 5 year model risk: 1.2%. NCI Lifetime model risk: 6.9%. Prior Study Comparison: 06/04/2017 Bilateral Screening Mammogram, [facility]. 04/13/2019 Bilateral Screening Mammogram, [facility]. 06/21/2020 Bilateral Screening Mammogram, [facility]. 07/29/2021 Bilateral Screening Mammogram, [facility]. 07/30/2022 Bilateral MG 3D screening mammo w/cad, [facility]. Tissue Density: The breasts are heterogeneously dense, which may obscure small masses. Findings: Analyzed By CAD. There is no suspicious group of microcalcifications or new suspicious mass in either breast. Chronic nodularity right breast compatible with benign-appearing lymph nodes. Benign calcifications. Chronic benign-appearing well-circumscribed nodularity along the lower right breast stable from multiple prior exams. Overall Assessment: Benign, BI-RAD 2 Management: Screening Mammogram of both breasts in 1 year. . Patient should continue monthly self-breast exams. A clinical breast exam by your physician is recommended on an annual basis. This exam should not preclude additional follow-up of suspicious palpable abnormalities. Note on Sri scores and lifetime risk: 1. A Sri score greater than 3% is considered moderate risk. If this is the case, consider specialist referral to assess eligibility for a risk reducing agent. 2. If overall lifetime risk for the development of breast cancer is 20% or higher, the patient may qualify for future screening with alternating mammogram and breast MRI. Electronically signed and approved by: Negro Zepeda M.D. Radiologis
== END | disposition home or self-care (01) ==
LOC: RADMAMWWP 12:36
PROVIDERS: ATTEND Family Medicine
DX: Z12.31 Encounter for screening mammogram for malignant neoplasm of breast (principal); Z80.3 Family history of malignant neoplasm of breast; Z78.0 Asymptomatic menopausal state
CPT/HCPCS: 77063; 77067

== ENCOUNTER 2023-09-16 09:22 | Day surgery (SDC) | payer BC ==
[2023-09-14 15:20] VITALS: BMI 24.5
[~2023-09-16 09:22] MED LIST changes: -DEXAMETHASONE SOD PHOSPHATE 4 MG/ML 1 ML VIAL IV ONE; -HEPARIN SODIUM,PORCINE/PF 5,000 UNIT/0.5 ML SYRINGE SQ PRN; -HYDROmorphone 0.5 MG/0.5 ML SYRINGE IVP PRN; -LACTATED RINGERS 1,000 ML IV SCH; -ONDANSETRON 4 MG/2 ML VIAL IVP ONE
[2023-09-16] MEDS: LACTATED RINGERS 1,000 ML IV SCH (09:39)
[2023-09-16] MEDS ORDERED: PROPOFOL 10 MG/ML 20 ML VIAL IV ONE (10:29)
[2023-09-16 10:39] VITALS: TEMP 97.5
--- NOTE | 2023-09-16 11:33 | P.PCN ---
Date of Procedure: 09/16/23 Procedure(s) Performed: BRIEF HISTORY: Patient is a 58-year-old pleasant white female scheduled for an elective colonoscopy as a part of evaluation of abnormal CAT scan of the abdomen that showed thickening of the ascending colon. PROCEDURE PERFORMED: Colonoscopy. PREOPERATIVE DIAGNOSIS: Abnormal CAT scan that showed thickening of the ascending colon. IV sedation per Anesthesia. PROCEDURE: After informed consent was obtained, the patient, was brought into the endoscopy unit. IV sedation was administered by Anesthesia under continuous monitoring. Digital rectal examination was normal. Initially the Olympus CF-160 flexible video colonoscope was then inserted in the rectum, gradually advanced i nto the cecum without any difficulty. Careful examination was performed as the scope was gradually being withdrawn. Ileocecal valve and the appendiceal orifice were visualized and appeared normal. Prep was excellent. Mucosa of the cecum, ascending colon, transverse colon, descending colon, sigmoid colon, and rectum appeared normal. Retroflexion was performed in the rectum and in the distal rectum just proximal to the dentate line there was a 3 cm flat/broad-based polyp that was removed by piecemeal snare polypectomy and complete polypectomy was accomplished. Following the polypectomy and Endo Clip was placed to prevent post polypectomy bleed.. The patient tolerated the procedure well. IMPRESSION: 3 cm flat/broad-based distal rectal polyp just proximal to the dentate line s/p piecemeal snare polypectomy followed by Endo Clip placement Rest of the colon appeared normal RECOMMENDATIONS: Findings of this examination were discussed with the patient as well as her family. She was advised to follow with the biopsy results. If the biopsy reveals adenoma, we will plan a repeat sigmoidoscopy in 3 months to ensure complete polypectomy.
[2023-09-16 11:37] VITALS: BP 117/86; PULSE 61; RESP 18
== END 2023-09-16 11:51 | disposition home or self-care (01) ==
LOC: ORWHC2ENDO 09:22
PROVIDERS: ATTEND Internal Medicine Gastroenterology
DX: D12.8 Benign neoplasm of rectum (principal); E78.5 Hyperlipidemia, unspecified; K21.9 Gastro-esophageal reflux disease without esophagitis; Z79.899 Other long term (current) drug therapy; Z90.49 Acquired absence of other specified parts of digestive tract
CPT/HCPCS: 88305; 45385; J2704

== ENCOUNTER → 2024-01-19 | Day surgery (SDC) | payer BC ==
[2024-01-18 09:40] VITALS: BMI 24.5
[~2024-01-19] MED LIST changes: +LACTATED RINGERS 1,000 ML IV SCH; -LIDOCAINE 1% (10MG/ML) FOR IV START INTRADERMA PRN; +PROPOFOL 10 MG/ML 20 ML VIAL IV ONE
[2024-01-19 08:54] VITALS: TEMP 97.3
[2024-01-19] MEDS: IV FLUID CONTINUATION 1,000 ML IV ONE (09:00)
--- NOTE | 2024-01-19 09:32 | P.PCN ---
Date of Procedure: 01/19/24 Procedure(s) Performed: BRIEF HISTORY: Patient is a 58-year-old pleasant white female scheduled for an elective sigmoidoscopy as a part of the post large distal rectal polyp that was noted on recent screening colonoscopy in August 2023. 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 She is scheduled for follow-up sigmoidoscopy in 3 months. PROCEDURE PERFORMED: Flexible sigmoidoscopy with snare polypectomy PREOPERATIVE DIAGNOSIS: Follow-up large distal rectal polyp with high-grade dysplasia. IV sedation per Anesthesia. PROCEDURE: After informed consent was obtained, the patient, was brought into the endoscopy unit. IV sedation was administered by Anesthesia under continuous monitoring. Digital rectal examination was normal. Initially the Olympus CF-160 flexible video colonoscope was then inserted in the rectum, gradually advanced into the descending colon. Careful examination was performed. Prep was excellent. Mucosa of the colon and sigmoid colon, appeared normal. In the distal rectum just proximal to the dentate line there was a 5 mm x@ residual polyp identified at the site of previous polypectomy. Snare polypectomy was performed and complete polypectomy accomplished. Retroflexion was performed in the rectum and no lesions were seen. The patient tolerated the procedure well. IMPRESSION: 5 mm x 2 residual polyp in the distal rectum at the site of previous polypectomy status post snare polypectomy and complete polypectomy accomplished RECOMMENDATIONS: Findings of this examination were discussed with the patient as well as her family. She was advised to follow-up with the biopsy results. Plan a repeat colonoscopy in 1 year..
[2024-01-19 09:50] VITALS: BP 115/72; PULSE 68; RESP 16
== END ==
LOC: ORWHC2ENDO 08:26
PROVIDERS: ATTEND Internal Medicine Gastroenterology
DX: D12.6 Benign neoplasm of colon, unspecified
CPT/HCPCS: 45338; 88305

== ENCOUNTER 2024-02-14 16:13 | Emergency (ER) | payer BC ==
--- NOTE | 2024-02-14 16:33 | ED ---
General Adult HPI - General Source: patient Mode of arrival: ambulatory Limitations: no limitations <Gabe Mrucia - Last Filed: 02/14/24 16:32> <Román Weathers - Last Filed: 02/14/24 22:06> - General Stated complaint: chest pain Time Seen by Provider: 02/14/24 16:32 - History of Present Illness Initial comments: 58-year-old female presenting with chief complaint of chest pain. Patient is having a tightness in the center of her chest that started 2 days ago but is worse today. No shortness of breath. No alleviating or aggravating factors. No cough or lower extremity swelling. (Gabe Murcia) - Related Data Home Medications Medication Instructions Recorded Confirmed Atorvastatin [Lipitor] 20 mg PO MOTH@0600 02/22/19 01/18/24 Metoprolol Succinate (ER) [Toprol 25 mg PO QAM 10/29/21 01/18/24 Xl] Cholecalciferol (Vitamin D3) 125 mcg PO DAILY 06/12/22 01/18/24 [Vitamin D3 (125 MCG = 5,000 IU)] Famotidine [Pepcid] 10 mg PO QAM 07/04/22 01/18/24 Multivit-Min/Iron/Folic/Lutein 1 each PO DAILY 09/14/23 01/18/24 [Centrum Silver Women Tablet] Allergies Allergy/AdvReac Type Severity Reaction Status Date / Time Penicillins Allergy Unknown Verified 02/14/24 17:01 Childhood Review of Systems ROS Other: All systems not noted in ROS Statement are negative. <Gabe Murcia - Last Filed: 02/14/24 16:32> ROS Other: All systems not noted in ROS Statement are negative. <Román Weathers - Last Filed: 02/14/24 22:06> ROS Statement: Those systems with pertinent positive or pertinent negative responses have been documented in the HPI. Past Medical History Past Medical History: Cancer, GERD/Reflux, Hyperlipidemia Additional Past Medical History / Comment(s): had abnormal findings on recent CT scan which recommended colonoscopy, hx migraines, palpitations, abnormal post menopauseal vaginal bleeding, ovarian CA, uterine CA-received chemo last dose June 2022 History of Any Multi-Drug Resistant Organisms: None Reported Past Surgical History: Cholecystectomy, Hysterectomy Additional Past Surgical History / Comment(s): finger sx, cyst removal from ovary Past Anesthesia/Blood Transfusion Reactions: No Reported Reaction, Motion Sickness Additional Past Anesthesia/Blood Transfusion Reaction / Comment(s): no problems w/ prior blood transfusion, Smoking Status: Never smoker - Past Family History Mother Family Medical History: Cancer Additional Family Medical History / Comment(s): lymphoma abdominal <Gabe Murcia - Last Filed: 02/14/24 16:32> General Exam <Gabe Murcia - Last Filed: 02/14/24 16:32> - General Exam Comments Initial Comments: Visual Physical Exam General: Well-appearing, nontoxic, no acute distress. Head: Normocephalic, atraumatic Eyes: PERRLA, EOMI ENT: Airway patent Chest: Nonlabored breathing Skin: No visual rash, normal skin tone Neuro: Alert and oriented 3 Musculoskeletal: No gross abnormalities (Gabe Murcia) Course Vital Signs 02/14/24 02/14/24 17:01 20:03 Temperature 98.4 F 98.2 F Pulse Rate 73 66 Respiratory 18 16 Rate Blood Pressure 118/83 127/82 O2 Sat by Pulse 99 99 Oximetry EKG Findings - EKG Results: EKG: interpreted by NED ORTEGA, sinus rhythm (72 bpm), normal axis, normal QRS, normal ST/T, no acute changes <Román Weathers - Last Filed: 02/14/24 22:06> Medical Decision Making <Gabe Murcia - Last Filed: 02/14/24 16:32> - Lab Data Result diagrams: 02/14/24 20:00 02/14/24 20:00 <Román Weathers - Last Filed: 02/14/24 22:06> - Medical Decision Making I performed the quick note portion of this visit, electronically signed Gabe Murcia PA-C (Gabe Murcia) The patient had chest x-ray that I interpreted as negative for acute infiltrate, congestive heart failure, pneumothorax. (Román Weathers) - Lab Data Lab Results 02/14/24 02/14/24 02/14/24 Range/Units 20:00 20:00 20:00 WBC 6.5 (3.8-10.6) k/uL RBC 4.16 (3.80-5.40) m/uL Hgb 12.9 (11.4-16.0) gm/dL Hct 38.4 (34.0-46.0) % MCV 92.3 (80.0-100.0) fL MCH 31.0 (25.0-35.0) pg MCHC 33.6 (31.0-37.0) g/dL RDW 13.2 (11.5-15.5) % Plt Count 143 L (150-450) k/uL MPV 7.1 Neutrophils % 74 % Lymphocytes % 16 % Monocytes % 7 % Eosinophils % 1 % Basophils % 0 % Neutrophils # 4.8 (1.3-7.7) k/uL Lymphocytes # 1.0 (1.0-4.8) k/uL Monocytes # 0.4 (0-1.0) k/uL Eosinophils # 0.0 (0-0.7) k/uL Basophils # 0.0 (0-0.2) k/uL PT 9.7 L (10.0-12.5) sec INR 0.9 (<1.2) APTT 23.6 (22.0-30.0) sec Sodium 137 (137-145) mmol/L Potassium 4.1 (3.5-5.1) mmol/L Chloride 103 (98-107) mmol/L Carbon Dioxide 28 (22-30) mmol/L Anion Gap 6 mmol/L BUN 18 H (7-17) mg/dL Creatinine 0.87 (0.52-1.04) mg/dL Est GFR (CKD-EPI)AfAm 85 (>60 ml/min/1.73 sqM) Est GFR (CKD-EPI)NonAf 74 (>60 ml/min/1.73 sqM) Glucose 94 (74-99) mg/dL Calcium 10.1 (8.4-10.2) mg/dL Magnesium 2.2 (1.6-2.3) mg/dL Total Bilirubin 1.9 H (0.2-1.3) mg/dL AST 40 H (14-36) U/L ALT 29 (4-34) U/L Alkaline Phosphatase 74 (38-126) U/L Troponin I (0.000-0.034) ng/mL Total Protein 8.7 H (6.3-8.2) g/dL Albumin 5.4 H (3.5-5.0) g/dL 02/14/24 Range/Units 20:00 WBC (3.8-10.6) k/uL RBC (3.80-5.40) m/uL Hgb (11.4-16.0) gm/dL Hct (34.0-46.0) % MCV (80.0-100.0) fL MCH (25.0-35.0) pg MCHC (31.0-37.0) g/dL RDW (11.5-15.5) % Plt Count (150-450) k/uL MPV Neutrophils % % Lymphocytes % % Monocytes % % Eosinophils % % Basophils % % Neutrophils # (1.3-7.7) k/uL Lymphocytes # (1.0-4.8) k/uL Monocytes # (0-1.0) k/uL Eosinophils # (0-0.7) k/uL Basophils # (0-0.2) k/uL PT (10.0-12.5) sec INR (<1.2) APTT (22.0-30.0) sec Sodium (137-145) mmol/L Potassium (3.5-5.1) mmol/L Chloride (98-107) mmol/L Carbon Dioxide (22-30) mmol/L Anion Gap mmol/L BUN (7-17) mg/dL Creatinine (0.52-1.04) mg/dL Est GFR (CKD-EPI)AfAm (>60 ml/min/1.73 sqM) Est GFR (CKD-EPI)NonAf (>60 ml/min/1.73 sqM) Glucose (74-99) mg/dL Calcium (8.4-10.2) mg/dL Magnesium (1.6-2.3) mg/dL Total Bilirubin (0.2-1.3) mg/dL AST (14-36) U/L ALT (4-34) U/L Alkaline Phosphatase (38-126) U/L Troponin I <0.012 (0.000-0.034) ng/mL Total Protein (6.3-8.2) g/dL Albumin (3.5-5.0) g/dL Disposition <Gabe Murcia - Last Filed: 02/14/24 16:32> Is patient prescribed a controlled substance at d/c from ED?: No <Román Weathers - Last Filed: 02/14/24 22:06> Clinical Impression: Atypical chest pain Disposition: HOME SELF-CARE Condition: Good Instructions (If sedation given, give patient instructions): Chest Pain (ED) Referrals: Canelo Donald DO [Primary Care Provider] - 1-2 days Lm Cavanaugh MD [STAFF PHYSICIAN] - 1-2 days
--- NOTE | 2024-02-14 17:40 | XR ---
EXAMINATION TYPE: XR chest 2V DATE OF EXAM: 02/14/2024 4:52 PM CLINICAL INDICATION: Female, 58 years old with history of Chest Pain; [facility] COMPARISON: 02/22/2019 TECHNIQUE: XR chest 2V Frontal view of the chest. FINDINGS: Lungs/Pleura: There is no evidence of pleural effusion, focal consolidation, or pneumothorax. Pulmonary vascularity: Unremarkable. Heart/mediastinum: Cardiomediastinal silhouette is unremarkable. Musculoskeletal: No acute osseous pathology. Other findings: None IMPRESSION: No acute cardiopulmonary disease/process. [facility], , 02/14/2024 5:38 PM
[2024-02-14 20:03] VITALS: TEMP 98.2
[2024-02-14 20:33] LABS: Basophils % (A) 0 %; Eosinophils % (A) 1 %; HCT 38.4 % (34.0-46.0); HGB 12.9 gm/dL (11.4-16.0); Lymphocytes % (A) 16 %; MCHC 33.6 g/dL (31.0-37.0); MCV 92.3 fL (80.0-100.0); Mean Platelet Volume 7.1; Monocytes # (A) 0.4 k/uL (0-1.0); Monocytes % (A) 7 %; Neutrophils # (A) 4.8 k/uL (1.3-7.7); Neutrophils % (A) 74 %; Platelet Count 143 k/uL (150-450); RBC 4.16 m/uL (3.80-5.40); RDW 13.2 % (11.5-15.5); WBC 6.5 k/uL (3.8-10.6)
[2024-02-14 20:36] LABS: ALT 29 U/L (4-34); AST 40 U/L (14-36); African American GFR (CKD) 85 (>60 ml/min/1.73 sqM); Albumin 5.4 g/dL (3.5-5.0); Alkaline Phosphatase 74 U/L (38-126); Anion Gap 6 mmol/L; Blood Urea Nitrogen 18 mg/dL (7-17); Calcium 10.1 mg/dL (8.4-10.2); Carbon Dioxide 28 mmol/L (22-30); Chloride 103 mmol/L (98-107); Glucose 94 mg/dL (74-99); Magnesium 2.2 mg/dL (1.6-2.3); Non-African American GFR(CKD) 74 (>60 ml/min/1.73 sqM); Potassium 4.1 mmol/L (3.5-5.1); Sodium 137 mmol/L (137-145); Total Bilirubin 1.9 mg/dL (0.2-1.3); Total Protein 8.7 g/dL (6.3-8.2)
[2024-02-14 20:38] LABS: INR 0.9 (<1.2); Partial Thromboplastin Time 23.6 sec (22.0-30.0); Prothrombin Time 9.7 sec (10.0-12.5)
[2024-02-14 22:15] VITALS: BP 125/81; PULSE 72; RESP 18
== END 2024-02-14 22:15 | disposition home or self-care (01) ==
LOC: EC 16:13
CPT/HCPCS: 36415; 71046; 80053; 83735; 84484; 85025; 85610; 85730; 93005; 99285

== ENCOUNTER → 2024-03-18 | Outpatient (CLI) | payer BC ==
--- NOTE | 2024-03-20 03:05 | CT ---
EXAMINATION TYPE: CT abdomen pelvis wo/w con CT DLP: 1263 mGycm, Automated exposure control for dose reduction was used. DATE OF EXAM: 03/18/2024 3:50 PM COMPARISON: Multiple CT abdomen pelvis with most recent 07/27/2023 CLINICAL INDICATION:Female, 58 years old with history of C56.9 OVARIAN CX; 6 month follow up for hx o f uterine and ovarian CA. TECHNIQUE: Standard CT of the abdomen and pelvis following the administration of 100 cc of Isovue 3 00 IV contrast material and oral contrast. Coronal and sagittal reformats were performed. FINDINGS: LOWER CHEST: Posterior dependent subsegmental atelectasis is noted. No pericardial effusion. Partial visualization of enlarged subcarinal lymph node measuring up to 2.0 cm. Additional bilateral hilar myers bcentimeter lymph nodes. Calcified lymph nodes within the right hilum. ABDOMEN LIVER: Unremarkable GALLBLADDER AND BILE DUCTS: The gallbladder is surgically absent. No biliary ductal dilatation. PANCREAS: Unremarkable. SPLEEN: Unremarkable. ADRENAL GLANDS: Unremarkable. KIDNEYS AND URETERS: No evidence of hydronephrosis or renal calculus. The kidneys enhance symmetrical ly. Contrast is demonstrated within both collecting systems on delayed phase. PELVIS BLADDER: Under distended, limiting evaluation. REPRODUCTIVE: The uterus is surgically absent. The ovaries appear surgically absent. No abnormality i dentified at the vaginal cuff. ABDOMEN & PELVIS STOMACH AND BOWEL: Stomach and duodenum are unremarkable. Enteric contrast is reaches the mid small b owel. No focal bowel wall thickening or surrounding inflammatory changes. Mild amount of stool is pre sent throughout the colon. No evidence of bowel obstruction. PERITONEUM: No evidence of pneumoperitoneum or free fluid. VASCULATURE: No evidence of aortic aneurysm. Pelvic phleboliths. MUSCULOSKELETAL: No acute osseous abnormalities. No aggressive osseous lesion. LYMPH NODES: Stable mildly enlarged 1.3 cm paraesophageal lymph node at the GE junction (series 3, im age 18). No other adenopathy identified within the abdomen or pelvis. SOFT TISSUE/ABDOMINAL WALL: Unremarkable IMPRESSION: 1. Postsurgical changes without evidence for local recurrence. 2. Stable 1.3 cm paraesophageal lymph node with partially visualized enlarged subcarinal lymph node. Raises possibility of metastatic disease within chest versus other etiologies. No prior imaging of e chest is available for comparison. Dedicated CT chest with IV contrast is recommended. [facility], , 03/20/2024 3:02 AM
== END | disposition home or self-care (01) ==
LOC: RADCTMAIN 13:55
PROVIDERS: ATTEND Internal Medicine Hematology & Oncology
DX: C56.9 Malignant neoplasm of unspecified ovary (principal); R59.0 Localized enlarged lymph nodes; I87.8 Other specified disorders of veins; J98.11 Atelectasis; G99.0 Autonomic neuropathy in diseases classified elsewhere; E78.5 Hyperlipidemia, unspecified; C54.9 Malignant neoplasm of corpus uteri, unspecified; Z71.3 Dietary counseling and surveillance
CPT/HCPCS: 74178; Q9967

== ENCOUNTER → 2024-08-05 | Outpatient (CLI) | payer BC ==
--- NOTE | 2024-08-05 17:34 | MM ---
Reason for Exam: Screening (asymptomatic). Last screening mammogram was performed 12 month(s) ago. Patient History: Menarche at age 13. First Full-Term at age 24. Left ovary removed at age 37. Right ovary removed at age 56. Hysterectomy at age 56. Postmenopausal. Ovarian cancer, age 56. Previous chemotherapy at age 56. Paternal aunt had breast cancer, age 45. Risk Values: Sri 5 year model risk: 1.2%. NCI Lifetime model risk: 6.7%. Prior Study Comparison: 07/29/2021 Bilateral Screening Mammogram, [facility]. 07/30/2022 Bilateral MG 3D screening mammo w/cad, [facility]. 08/03/2023 Bilateral MG 3D screening mammo w/cad, [facility]. Tissue Density: The breasts are heterogeneously dense, which may obscure small masses. Findings: Analyzed By CAD. Bilateral areas of asymmetric density are unchanged. There is no suspicious group of microcalcifications or new suspicious mass in either breast. Overall Assessment: Benign, BI-RAD 2 Management: Screening Mammogram of both breasts in 1 year. Patient should continue monthly self-breast exams. A clinical breast exam by your physician is recommended on an annual basis. This exam should not preclude additional follow-up of suspicious palpable abnormalities. Note on Sri scores and lifetime risk: 1. A Sri score greater than 3% is considered moderate risk. If this is the case, consider specialist referral to assess eligibility for a risk reducing agent. 2. If overall lifetime risk for the development of breast cancer is 20% or higher, the patient may qualify for future screening with alternating mammogram and breast MRI. [facility], , 08/05/2024 5:31 PM. Electronically signed and approved by: Adilene Dawson M.D. Radiologist
== END | disposition home or self-care (01) ==
LOC: RADMAMWWP 14:26
PROVIDERS: ATTEND Family Medicine
DX: Z12.31 Encounter for screening mammogram for malignant neoplasm of breast (principal); R92.333 Mammographic heterogeneous density, bilateral breasts; Z78.0 Asymptomatic menopausal state; Z80.3 Family history of malignant neoplasm of breast
CPT/HCPCS: 77063; 77067

== ENCOUNTER → 2024-08-24 | Outpatient (CLI) | payer BC ==
--- NOTE | 2024-08-24 14:00 | CT ---
CT chest with contrast. HISTORY: Uterine cancer COMPARISON: None TECHNIQUE: Multiple axial images were obtained through the thorax following the uneventful administra tion of nonionic IV contrast material. FINDINGS: There are multiple scattered sub-6 mm pulmonary nodules. There is a tight cluster of 3 pulmonary nodu les in right upper lobe the largest of which is 4.7 mm. There are some mild interstitial densities wi th a few sub-4 mm nodules in the left lung base. There is a 6.7 mm nodule in the lingula and a 5.4 mm nodule in the left upper lobe medially. There is no airspace consolidation. There is no pleural effusion, pleural thickening or pneumothorax. The great vessels of the chest are normal. There is conglomerate adenopathy in the right hilar region precarinal region, subcarinal region with a 14 mm enlarging nodule in the AP window. There is a discrete 2.2 cm nodule in the right hilar regio n. Limited scanning of the upper abdomen reveals no gross abnormality.. No focal osseous lesions are seen. IMPRESSION: 1. Mediastinal and hilar adenopathy. 2.multiple pulmonary nodules 3.findings highly suspicious for metastatic disease [facility], , 08/24/2024 1:57 PM
== END | disposition home or self-care (01) ==
LOC: RADCTMAIN 13:03
PROVIDERS: ATTEND Internal Medicine Hematology & Oncology
DX: C54.9 Malignant neoplasm of corpus uteri, unspecified (principal); G99.0 Autonomic neuropathy in diseases classified elsewhere; E78.5 Hyperlipidemia, unspecified; Z71.3 Dietary counseling and surveillance; R91.8 Other nonspecific abnormal finding of lung field; R59.0 Localized enlarged lymph nodes
CPT/HCPCS: 71260; Q9967

== ENCOUNTER → 2024-09-15 | Outpatient (CLI) | payer BC ==
--- NOTE | 2024-09-15 16:53 | PE ---
EXAMINATION TYPE: PET CT fusion skull to thigh DATE OF EXAM: 09/15/2024 COMPARISON: 03/18/2024 CT abdomen pelvis, CT chest 08/24/2024 Prior PET/CT: No prior PET/CT at this location. CLINICAL INDICATION: Female, 59 years old with history of C56.1 OVARIAN CANCER C54.8 UTERINE CANCER, TECHNIQUE: Following the intravenous administration of 7.74 mCi of F-18 FDG, whole body images are p erformed PET CT fusion skull to thigh. Images are reviewed on the computer in the coronal, axial, an d sagittal planes. Reconstructed rotating images are created on independent workstation and reviewed on the computer. A localization and attenuation correction CT is performed in conjunction with the PET scan. DLP: 840 mGycm SCAN: Subsequent Blood glucose: 100 mg/dL Average Mediastinum SUV: 2.77 Average Liver SUV: 3.46 FINDINGS: NECK: No abnormal uptake THORAX: There is increased uptake within the right paratracheal lymph node. Image 95, SUV 7.76. Multi ple peribronchial small lymph nodes have increased uptake, example image 99, SUV 6.31 on the left and SUV 6.09 on the right. Hilar adenopathy is on the left, image 103, SUV 6.55. Subcarinal adenopathy h as increased uptake, image 105, SUV 8.01. Medial infrahilar adenopathy is present with abnormal uptak e, example image 110, on the right SUV of 9.33, on the left SUV 8.33. There is some very vague left lower lobe increased uptake, example image 126. This has mild elevated SUV of 4.8 posteriorly and 4.64 more anteriorly in the infrahilar region. Early metastasis can be con sidered. Inflammatory changes are not excluded. ABDOMEN: No abnormal uptake PELVIS: No abnormal uptake OSSEOUS STRUCTURES: No abnormal uptake LOCALIZATION CT: Multiple enlarged and shotty mediastinal lymph nodes are present. COMPARISON: Adenopathy appears similar or slightly improved from the prior CT abdomen and pelvis wher e comparable. The findings are stable from the recent chest CT comparison. IMPRESSION: 1. Multiple enlarged mediastinal and hilar lymphadenopathy with increased uptake compatible with meta static disease. 2. Some vague uptake within the left lower lung field could be some early metastatic disease with vag ue increased uptake. [facility], , 09/15/2024 4:51 PM
== END | disposition home or self-care (01) ==
LOC: RADPETMAIN 13:56
PROVIDERS: ATTEND Internal Medicine Hematology & Oncology
DX: C56.1 Malignant neoplasm of right ovary (principal); C54.8 Malignant neoplasm of overlapping sites of corpus uteri; R59.0 Localized enlarged lymph nodes
CPT/HCPCS: 78815; A9552

== ENCOUNTER 2024-09-29 13:35 | Day surgery (SDC) | payer BC ==
[~2024-09-29 13:35] MED LIST changes: +HYDROmorphone 0.5 MG/0.5 ML SYRINGE IVP PRN; +LIDOCAINE 1% (10MG/ML) FOR IV START INTRADERMA PRN; +MIDAZOLAM 2 MG/2 ML VIAL IV PRN; -PROPOFOL 10 MG/ML 20 ML VIAL IV ONE; +fentaNYL (PF) 50 MCG/ML 2 ML AMP IVP PRN
[2024-09-29] MEDS: IV FLUID CONTINUATION 1,000 ML IV ONE (14:18)
[2024-09-29] MEDS: DEXAMETHASONE SOD PHOSPHATE 4 MG/ML 1 ML VIAL IV ONE (14:21)
[2024-09-29] MEDS: ONDANSETRON 4 MG/2 ML VIAL IVP ONE (14:21)
[2024-09-29] MEDS: LACTATED RINGERS 1,000 ML IV SCH (14:22)
[2024-09-29] MEDS ORDERED: MIDAZOLAM 2 MG/2 ML VIAL ONE (15:53)
[2024-09-29] MEDS ORDERED: ROCURONIUM 10 MG/ML (5 ML VIAL) IV ONE (15:53)
[2024-09-29] MEDS ORDERED: PROPOFOL 10 MG/ML 20 ML VIAL IV ONE (15:53)
[2024-09-29] MEDS ORDERED: SUCCINYLCHOLINE CHLORIDE 200 MG/10 ML VIAL IV ONE (15:53)
[2024-09-29] MEDS ORDERED: LIDOCAINE 1% INJ 10MG/ML (20 ML MDV) ONE (15:53)
[2024-09-29] MEDS ORDERED: fentaNYL (PF) 50 MCG/ML 2 ML AMP ONE (15:53)
--- NOTE | 2024-09-29 16:47 | P.PCN ---
Date of Procedure: 09/29/24 Operative Findings: Date of Procedure: 09/29/24 Preoperative Diagnosis: Mediastinal lymphadenopathy Postoperative Diagnosis: Mediastinal lymphadenopathy Procedure(s) Performed: Flexible bronchoscopy Endobronchial ultrasound Transbronchial needle aspirate of subcarinal station 7 and right paratracheal 4R lymph node Anesthesia: MAC Surgeon: Pamela Joaquin Estimated Blood Loss (ml): 0 Pathology: other Condition: stable Disposition: same day Operative Findings: The procedure was done in the endoscopy suite. A consent was obtained. Timeout was done. Following that, the patient was intubated in the usual fashion by EBD TEACHER and placed on a mechanical ventilator. The flexible bronchoscope was introduced to the orotracheal tube and was advanced into the distal trachea. A complete airway inspection was done. Distal trachea, bilateral mainstem bronchi, right upper lobe bronchus, right middle lobe bronchus and the right lower bronchus and the various 10 segments on the right in addition to the left upper lobe bronchus and the left lower lobe bronchus on the basilar segments on the left were all within normal limits. No endobronchial tumors. No lesions. No secretions. Mucosa looked healthy. The flexible scope was removed and endobronchial ultrasound was inserted Endobronchial ultrasound was used to do a full mediastinal lymph node evaluation. There was extensive lymphadenopathy throughout the mediastinum. The lymph node was various sizes, measuring 26 mm in the subcarinal station 7, 19mm paratracheal station 4R, 12 mm station 4L. Noted, there were smaller lymph nodes attached to the bulkier ones in various stations specially in the subcarinal and right paratracheal area. Using a 22-gauge needle, transbronchial needle aspirate of the subcarinal station 7 lymph node was done, a total of 5 passes and then additional 2 passes were done in the same station harvesting the samples in lymphoma solution. Subsequently, transbronchial needle aspirate of station 4R anterior tracheal lymph node was also done with a total of 5 passes. No endobronchial bleeding. The patient tolerated the procedure well without any complications. The patient was extubated and transferred to recovery in stable condition.
[2024-09-29 16:54] VITALS: TEMP 97.2
[2024-09-29 17:34] VITALS: RESP 16
[2024-09-29 18:37] VITALS: BP 122/71; PULSE 58
== END 2024-09-29 18:45 | disposition home or self-care (01) ==
LOC: ORWHC2ENDO 13:35
PROVIDERS: ATTEND Internal Medicine Critical Care Medicine
DX: R59.0 Localized enlarged lymph nodes (principal); I10 Essential (primary) hypertension; E78.5 Hyperlipidemia, unspecified; G43.909 Migraine, unspecified, not intractable, without status migrainosus; K21.9 Gastro-esophageal reflux disease without esophagitis; Z85.41 Personal history of malignant neoplasm of cervix uteri; Z88.0 Allergy status to penicillin; Z79.899 Other long term (current) drug therapy
CPT/HCPCS: 88305; 88342; 88341; 31653; J2250; J0330; J1100; J2405; J2003; J3010; J2704; 31652